=== PATIENT | female | born 1960 | race Caucasian/White ===

== ENCOUNTER 2019-01-05 13:42 | Emergency (ER) | payer MEDICARE, MEDICAID ==
[~2019-01-05] VITALS: Ht 165 cm; Wt 81.0 kg
[2019-01-05] MEDS ORDERED: ORPHENADRINE 60 MG/2 ML (NORFLEX) AMP IM ONE (14:30)
[2019-01-05] MEDS ORDERED: HYDROcodone/APAP 5 MG/325 MG (LORTAB) TAB PO ONE (14:30)
--- NOTE | 2019-01-05 14:45 | Diagnostic Imaging Report ---
PROCEDURE: CT lumbar spine without contrast. TECHNIQUE: Multiple contiguous axial images were obtained through the lumbar spine without the use of intravenous contrast. Sagittal and coronal reformations were then performed. Auto Exposure Controls were utilized during the CT exam to meet ALARA standards for radiation dose reduction. INDICATION: Fall six weeks ago with continued low back pain and left hip and leg pain. COMPARISON: No prior studies are available for comparison. FINDINGS: There is very slight right convexity lumbar scoliotic curvature. There is normal lumbar lordotic curvature. Minimal retrolisthesis of L4 on L5 is noted. The vertebral body heights are well maintained. No acute compression fracture is seen. There is significant degenerative disc disease identified at the L4-L5 level with disc space narrowing, marginal osteophyte formation, and vacuum disc phenomenon. Multilevel facet arthropathy is also noted. No fractures are identified. Paraspinous tissues demonstrate the aorta to be heavily calcified but non-aneurysmal. IMPRESSION: Lumbar spondylosis. No acute bony abnormality is detected. If symptoms persist, MRI of the lumbar spine could be performed for better characterization. Dictated by: Dictated on workstation # [id number]
[2019-01-05] MEDS ORDERED: PRD20T PO (14:59)
[2019-01-05] MEDS ORDERED: IBUP-1780 PO (14:59)
--- NOTE | 2019-01-05 15:00 | ED Back Pain ---
General Chief Complaint: Back Problems Stated Complaint: BACK/LEG PAIN Nursing Triage Note: Pt ambulates to triage with C/O lower back pain, 01/22. Pt states she has chronic back pain, has had back surgery to get disc removed. Pt reports a fall 2 months ago and states her pain has been significantly worse since then, states "wakes me up at night". Pt currently takes tylenol for the pain. Nursing Sepsis Screen: No Definite Risk Source of Information: Patient Exam Limitations: No Limitations History of Present Illness Date Seen by Provider: Jan 05, 2019 Time Seen by Provider: 14:17 Allergies and Home Medications Allergies Coded Allergies: Penicillins (Verified Allergy, Unknown, 01/05/19) tramadol (Verified Allergy, Unknown, 01/05/19) Past Zzsdjkx-Aubnkt-Obaotz Hx Patient Social History Alcohol Use: Rarely Uses Recreational Drug Use: No Type Used: Cigarettes 2nd Hand Smoke Exposure: Yes Recent Foreign Travel: No Contact w/Someone Who Travel: No Recent Infectious Disease Expo: No Recent Hopitalizations: No Physical Abuse: No Sexual Abuse: No Mistreated: No Fear: No Seasonal Allergies Seasonal Allergies: No Past Medical History Surgeries: Yes Appendectomy, Cystectomy, Hysterectomy, Orthopedic Respiratory: Yes COPD Cardiac: Yes (last seizure- 10/2018) Hypertension Neurological: Yes 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 oz. kg; 29.00 BMI Method: Progress/Results/Core Measures Results/Orders My Orders Orders - BLAS DUBOIS Ct Lumbar Spine Wo (01/05/19 14:17) Orphenadrine Injection (Norflex Injectio (01/05/19 14:30) Hydrocodone/Apap 5/325 Tablet (Lortab 5 (01/05/19 14:30) Vital Signs/I&O 01/05/19 13:54 Temp 36.7 Pulse 83 Resp 18 B/P (MAP) 132/82 (99) Pulse Ox 98 O2 Delivery Room Air Blood Pressure Mean: 99 Departure Impression Primary Impression: Chronic back pain Disposition: 01 HOME, SELF-CARE Condition: Stable/Unchanged Departure-Patient Inst. Decision time for Depature: 14:58 Patient Instructions: Low Back Pain (DC), MANAGING YOUR CHRONIC PAIN Add. Discharge Instructions: Take medication as directed. Follow-up with your primary care provider within 1 week for recheck. Return back to the emergency room for worsening symptoms or concerns as needed. All discharge instructions reviewed with patient and/or family. Voiced understanding. Scripts Ibuprofen (Ibuprofen) 800 Mg Tablet 800 MG PO Q8H PRN for PAIN for 7 Days, #21 TAB 0 Refills Prov: BLAS DUBOIS 01/05/19 Prednisone (Prednisone) 20 Mg Tab 40 MG PO DAILY for 5 Days, #10 TAB 0 Refills Prov: BLAS DUBOIS 01/05/19 BLAS DUBOIS Jan 05, 2019 15:00
[2019-01-05 15:04] VITALS: BP 126/75
== END 2019-01-05 15:03 | disposition home or self-care (01) ==
LOC: EDUNIT# 13:42 → ER 13:43
DX: G89.29 Other chronic pain (principal); M54.5 Low back pain; I10 Essential (primary) hypertension; J44.9 Chronic obstructive pulmonary disease, unspecified; G40.909 Epilepsy, unspecified, not intractable, without status epilepticus; Z85.41 Personal history of malignant neoplasm of cervix uteri; Z87.828 Personal history of other (healed) physical injury and trauma; Z98.890 Other specified postprocedural states; Z88.0 Allergy status to penicillin; Z88.5 Allergy status to narcotic agent; Z77.22 Contact with and (suspected) exposure to environmental tobacco smoke (acute) (chronic); Z90.710 Acquired absence of both cervix and uterus; Z90.49 Acquired absence of other specified parts of digestive tract
CPT/HCPCS: 72131

== ENCOUNTER → 2019-03-02 | Outpatient (CLI) | payer MEDICARE, MEDICAID ==
[~2019-03-02] MED LIST: IBUP-1780 PO; PRD20T PO
--- NOTE | 2019-03-02 16:42 | Diagnostic Imaging Report ---
PROCEDURE: MRI lumbar spine. TECHNIQUE: Multiplanar, multisequence MRI of the lumbar spine was performed without contrast. INDICATION: Lifting injury with low back pain. COMPARISON: No prior MR. Study however interpreted in correlation with CT lumbar spine performed on 01/05/2019. FINDINGS: Lumbar body heights are maintained. The alignment is anatomic. The marrow signal intensity is unremarkable. The lumbar spinal canal is narrowed on a multifactorial basis at multiple levels. No paravertebral mass, hemorrhage, or fluid collection. There are some prominent venous channels in the left periaortic retroperitoneum. The lower thoracic cord appeared normal. The conus is normal. No intrathecal abnormality. No acute epidural abnormality. T12-L1: Minimal anterior osteophyte disc material results in no stenosis. L1-L2: There is thickening of the ligamenta flava and facet arthrosis, however no substantial degree of canal, foraminal, or recess stenosis is present. L2-L3: There is buckled thickened ligamenta flava, hypertrophic facet arthrosis with mild disc bulge, and endplate osteophytes resulting in a mild degree of canal stenosis and mild biforaminal narrowing. L3-L4: Buckled thickened ligamenta flava and facet arthrosis with this predominantly responsible for veccdpfe-vh-mskjit canal stenosis with severe left and mild right lateral recess impingement as well as mild left greater than right foraminal narrowing. L4-L5: There is facet arthrosis, thickening of the ligamenta flava, disc bulge, and endplate osteophytes which result in moderate right and mild left foraminal stenosis with mild central canal narrowing. L5-S1: There is no substantial canal stenosis. Osteophyte disc material eccentric to the right results in at least mild right neuroforaminal narrowing. IMPRESSION: Degenerative changes through the discs, endplates, and posterior elements with multilevel stenoses, listed level by level above, greatest at L3-L4. Normal alignment. No acute bony abnormality. Dictated by: Dictated on workstation # [id number]
== END ==
LOC: RAD 15:37
PROVIDERS: ATTEND Internal Medicine
DX: S39.82XA Other specified injuries of lower back, initial encounter (principal); M51.16 Intervertebral disc disorders with radiculopathy, lumbar region; M48.07 Spinal stenosis, lumbosacral region; M25.78 Osteophyte, vertebrae; M47.26 Other spondylosis with radiculopathy, lumbar region; X50.9XXA Other and unspecified overexertion or strenuous movements or postures, initial encounter
CPT/HCPCS: 72148

== ENCOUNTER → 2020-05-10 | Outpatient (CLI) | payer MEDICARE, MEDICAID ==
--- NOTE | 2020-05-10 17:21 | Diagnostic Imaging Report ---
PROCEDURE: MRI lumbar spine. TECHNIQUE: Multiplanar, multisequence MRI of the lumbar spine was performed without contrast. INDICATION: Chronic low back pain. Patient has a history of previous lumbar spine surgery in 2009. Correlation is made to prior MRI lumbar spine study from 03/02/2019. Curvature of lumbar spine is normal. There is minimal retrolisthesis of L4 on L5. Vertebral body heights are maintained. No acute compression fracture or geographic marrow lesion is seen. There is generalized degenerative disc disease with interval disc space narrowing and desiccation, similar to prior exam. The conus is unremarkable at the L1 level. T12-L1: Central canal is patent. Neural foramina are patent. L1-L2: Central canal is patent. There are degenerative facet changes noted. No significant neural foraminal stenosis is seen. L2-L3: Hypertrophic facet changes and ligamentous thickening results in moderate trefoil stenosis of the canal. There is significant bilateral lateral recess stenosis. There is also moderate bilateral neural foraminal stenosis. L3-L4: Marked hypertrophic facet changes and ligamentous thickening with broad-based disc/osteophyte complex results in severe trefoil stenosis of the central canal. There is severe bilateral lateral recess stenosis and also moderate bilateral neural foraminal stenosis. L4-L5: Broad-based disc/osteophyte complex flattens the ventral thecal sac. Central canal is patent but there is severe bilateral lateral recess stenosis. These also fairly significant bilateral neural foraminal stenosis. L5-S1: Central canal is patent but there is significant narrowing of the lateral recesses bilaterally particularly on the right. There is also moderate right neural foraminal stenosis. Paraspinous tissues are unremarkable. IMPRESSION: Multilevel lumbar spondylosis with multilevel central canal, lateral recess or neural foraminal stenosis described level by level above. No acute compression fracture is detected. Dictated by: Dictated on workstation # [id number]
== END ==
LOC: RAD 05-02 16:15
PROVIDERS: ATTEND Nurse Practitioner Family
DX: M47.816 Spondylosis without myelopathy or radiculopathy, lumbar region (principal); M48.061 Spinal stenosis, lumbar region without neurogenic claudication; M25.78 Osteophyte, vertebrae
CPT/HCPCS: 72148

== ENCOUNTER 2020-05-13 08:13 | Inpatient (IN) | payer MEDICARE, MEDICAID ==
[~2020-05-13] VITALS: Ht 170.2 cm; Wt 91.0 kg
[2020-05-13] MEDS ORDERED: LORazepam INJ 2 MG/ML (ATIVAN) VIAL IVP ONE (08:30)
--- NOTE | 2020-05-13 08:59 | Diagnostic Imaging Report ---
EXAMINATION: Chest 1 view HISTORY: SOA COMPARISON: None available. FINDINGS: Heart size and pulmonary vasculature are normal. Mild elevation of the left hemidiaphragm. There are minimal interstitial opacities within the lung bases. Calcifications of the aorta. The osseous structures are intact. IMPRESSION: 1. Mild interstitial opacities in the lung bases which represent atelectasis, edema, or atypical infection in the appropriate clinical setting. Dictated by: Dictated on workstation # [id number]
[2020-05-13 09:04] LABS: CLARITY,URINE SLIGHTLY CLOUDY; COLOR,URINE DARK YELLOW; GLUCOSE, URINE (UA) NEGATIVE (NEGATIVE); PROTEIN,URINE 1+ (NEGATIVE)
[2020-05-13 09:05] LABS: BILIRUBIN,URINE 2+ (NEGATIVE); KETONES,URINE 1+ (NEGATIVE); LEUKOCYTE ESTERASE ,URINE NEGATIVE (NEGATIVE); NITRITE,URINE NEGATIVE (NEGATIVE); RBC,URINE 0-2 /HPF
[2020-05-13 09:06] LABS: BACTERIA,URINE FEW /HPF; HYALINE CASTS, URINE >50 /LPF
[2020-05-13 09:22] LABS: AMPHETAMINE SCREEN, URINE POSITIVE (NEGATIVE); BARBITURATE SCREEN URINE NEGATIVE (NEGATIVE); BENZODIAZEPINES SCREEN URINE NEGATIVE (NEGATIVE); CANNABINOID SCREEN, URINE POSITIVE (NEGATIVE); COCAINE SCREEN URINE NEGATIVE (NEGATIVE); METHADONE STAT NEGATIVE (NEGATIVE); METHAMPHETAMINE SCREEN URINE S POSITIVE (NEGATIVE); OPIATE SCREEN URINE NEGATIVE (NEGATIVE); OXYCODONE STAT NEGATIVE (NEGATIVE); PROPOXYPHENE STAT NEGATIVE (NEGATIVE); TRICYCLIC ANTIDEPRESSANTS SCRE NEGATIVE (NEGATIVE)
[2020-05-13 09:49] LABS: HEMATOCRIT 47 % (35-52); HEMOGLOBIN 16.7 G/DL (11.5-16.0); MEAN CORPUSCULAR HEMOGLOBIN 31 PG (25-34); MEAN CORPUSCULAR HGB CONC 36 G/DL (32-36); MEAN CORPUSCULAR VOLUME 88 FL (80-99); MEAN PLATELET VOLUME 10.1 FL (7.4-10.4); PLATELET COUNT 347 10^3/uL (130-400); WHITE BLOOD COUNT 17.9 10^3/uL (4.3-11.0)
[2020-05-13 09:50] LABS: BASOPHILS % (AUTO) 0 % (0-10); EOSINOPHILS % (AUTO) 0 % (0-10); LYMPHOCYTES # (AUTO) 1.9 X 10^3 (1.0-4.0); LYMPHOCYTES % (AUTO) 11 % (12-44); MONOCYTES % (AUTO) 6 % (0-12); NEUTROPHILS # (AUTO) 14.9 X 10^3 (1.8-7.8); NEUTROPHILS % (AUTO) 83 % (42-75)
[2020-05-13 10:17] LABS: CHLORIDE 106 MMOL/L (98-107); POTASSIUM 3.1 MMOL/L (3.6-5.0); SODIUM 144 MMOL/L (135-145)
[2020-05-13 10:18] LABS: ALANINE AMINOTRANSFERASE 59 U/L (0-55); ALBUMIN 3.9 GM/DL (3.2-4.5); ALKALINE PHOSPHATASE 79 U/L (40-136); BILIRUBIN,TOTAL 0.4 MG/DL (0.1-1.0); BUN/CREATININE RATIO 29; CALCIUM 9.7 MG/DL (8.5-10.1); CARBON DIOXIDE 19 MMOL/L (21-32); CREATININE SERUM 1.49 MG/DL (0.60-1.30); GFR ESTIMATED 36; GLUCOSE 114 MG/DL (70-105); TOTAL PROTEIN 8.9 GM/DL (6.4-8.2)
[2020-05-13 10:19] LABS: BAND NEUTROPHILS 10 %; LYMPHOCYTES % (MANUAL) 9 %; MONOCYTES % (MANUAL) 5 %; NEUTROPHILS % (MANUAL) 76 %
[2020-05-13 10:20] LABS: BASOPHILS % (MANUAL) 0 %; EOSINOPHILS % (MANUAL) 0 %; RBC MORPH NORMAL
[2020-05-13] MEDS ORDERED: FUROSEMIDE 40 MG/4 ML INJ (LASIX) IVP ONE (10:45)
[2020-05-13] MEDS ORDERED: HALOPERIDOL 5 MG/ML (HALDOL) VIAL IV ONE (12:00)
--- NOTE | 2020-05-13 12:04 | ED General ---
General Chief Complaint: Altered Mental Status Stated Complaint: CHEST PAIN; BLURRY VISION Nursing Triage Note: Patient brought to the ED by EMS, EMS states they were called to patient's residence by patient's daughter for patient reported blurred vision and chest pain, patient oriented to person only on arrival to the ED, resistant to staff. Nursing Sepsis Screen: No Definite Risk History of Present Illness Date Seen by Provider: May 13, 2020 Time Seen by Provider: 08:30 Initial Comments Patient is a 59-year-old female with history of hypertension, chronic respiratory failure and polysubstance abuse who is supplemental O2 dependent who presents altered mental status, chest pain, shortness of breath. Patient was found not wearing her oxygen this morning by EMS. O2 saturations were in the mid to upper 80s. Patient was placed on oxygen during transportation with O2 saturation in the low 90s on ED arrival. Patient is alert and oriented to person but confused to person place and events. She has rambling speech and is noted to be tachycardic. Blood pressure stable. Patient history is limited due to mental status changes. Timing/Duration: Other (Unknown) Severity: Moderate Associated Systoms: Shortness of Air Allergies and Home Medications Allergies Coded Allergies: Penicillins (Verified Allergy, Unknown, 01/05/19) tramadol (Verified Allergy, Unknown, 01/05/19) Home Medications Ibuprofen 800 Mg Tablet, 800 MG PO Q8H PRN for PAIN Prescribed by: BLAS DUBOIS on 01/05/19 145 Prednisone 20 Mg Tab, 40 MG PO DAILY Prescribed by: BLAS DUBOIS on 01/05/19 145 Patient Home Medication List Home Medication List Reviewed: Yes Review of Systems Review of Systems Constitutional: see HPI EENTM: see HPI Respiratory: see HPI Cardiovascular: see HPI Gastrointestinal: see HPI Genitourinary: see HPI Musculoskeletal: see HPI Skin: see HPI Psychiatric/Neurological: See HPI Hematologic/Lymphatic: See HPI All Other Systems Reviewed Negative Unless Noted: Yes Past Cuhotfw-Mfkhba-Svubhe Hx Past Med/Social Hx: Reviewed Nursing Past Med/Soc Hx Patient Social History Alcohol Use: Denies Use Drug of Choice: positive for methamphetamines and marijuana Smoking Status: Current Everyday Smoker Type Used: Cigarettes 2nd Hand Smoke Exposure: Yes Recent Infectious Disease Expo: No Recent Hopitalizations: No Seasonal Allergies Seasonal Allergies: No Past Medical History Surgeries: Yes Appendectomy, Cystectomy, Hysterectomy, Orthopedic Respiratory: Yes COPD Cardiac: Yes (last seizure- 10/2018) Hypertension 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 oz. 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 Norm as Tested, Abnormal equipment technician II-XII Focused Exam Lactate Level 05/13/20 09:35: Lactic Acid Level 1.58 Lactic Acid Level Laboratory Tests Test 05/13/20 09:35 Lactic Acid Level 1.58 MMOL/L (0.50-2.00) Progress/Results/Core Measures Suspected Sepsis Recent Fever Within 48 Hours: No Infection Criteria Present: None New/Unexplained Altered Menta: Yes Sepsis Screen: No Definite Risk SIRS Temperature: Pulse: 137 Respiratory Rate: 23 Laboratory Tests 05/13/20 09:35: White Blood Count 17.9H Blood Pressure 141 /92 Mean: 108 05/13/20 09:35: Lactic Acid Level 1.58 Laboratory Tests 05/13/20 09:35: Creatinine 1.49H, Platelet Count 347, Total Bilirubin 0.4 Results/Orders Lab Results Laboratory Tests Test 05/13/20 08:40 05/13/20 09:35 Range/Units Urine Color DARK YELLOW Urine Clarity SLIGHTLY CLOUDY Urine pH 6.0 5-9 Urine Specific [place] >=1.030 1.016-1.022 Urine Protein 1+ H NEGATIVE Urine Glucose (UA) NEGATIVE NEGATIVE Urine Ketones 1+ H NEGATIVE Urine Nitrite NEGATIVE NEGATIVE Urine Bilirubin 2+ H NEGATIVE Urine Urobilinogen 0.2 < = 1.0 MG/DL Urine Leukocyte Esterase NEGATIVE NEGATIVE Urine RBC (Auto) TRACE H NEGATIVE Urine RBC 0-2 /HPF Urine WBC 10-25 H /HPF Urine Squamous Epithelial Cells 10-25 H /HPF Urine Crystals NONE /LPF Urine Bacteria FEW H /HPF Urine Casts PRESENT /LPF Urine Hyaline Casts >50 H /LPF Urine Mucus MODERATE H /LPF Urine Culture Indicated YES Urine Opiates Screen NEGATIVE NEGATIVE Urine Oxycodone Screen NEGATIVE NEGATIVE Urine Methadone Screen NEGATIVE NEGATIVE Urine Propoxyphene Screen NEGATIVE NEGATIVE Urine Barbiturates Screen NEGATIVE NEGATIVE Ur Tricyclic Antidepressants Screen NEGATIVE NEGATIVE Urine Phencyclidine Screen NEGATIVE NEGATIVE Urine Amphetamines Screen POSITIVE H NEGATIVE Urine Methamphetamines Screen POSITIVE H NEGATIVE Urine Benzodiazepines Screen NEGATIVE NEGATIVE Urine Cocaine Screen NEGATIVE NEGATIVE Urine Cannabinoids Screen POSITIVE H NEGATIVE White Blood Count 17.9 H 4.3-11.0 10^3/uL Red Blood Count 5.34 4.35-5.85 10^6/uL Hemoglobin 16.7 H 11.5-16.0 G/DL Hematocrit 47 35-52 % Mean Corpuscular Volume 88 80-99 FL Mean Corpuscular Hemoglobin 31 25-34 PG Mean Corpuscular Hemoglobin Concent 36 32-36 G/DL Red Cell Distribution Width 12.7 10.0-14.5 % Platelet Count 347 130-400 10^3/uL Mean Platelet Volume 10.1 7.4-10.4 FL Immature Granulocyte % (Auto) 1 % Neutrophils (%) (Auto) 83 H 42-75 % Lymphocytes (%) (Auto) 11 L 12-44 % Monocytes (%) (Auto) 6 0-12 % Eosinophils (%) (Auto) 0 0-10 % Basophils (%) (Auto) 0 0-10 % Neutrophils # (Auto) 14.9 H 1.8-7.8 X 10^3 Lymphocytes # (Auto) 1.9 1.0-4.0 X 10^3 Monocytes # (Auto) 1.0 0.0-1.0 X 10^3 Eosinophils # (Auto) 0.0 0.0-0.3 10^3/uL Basophils # (Auto) 0.0 0.0-0.1 10^3/uL Immature Granulocyte # (Auto) 0.1 0.0-0.1 10^3/uL Neutrophils % (Manual) 76 % Lymphocytes % (Manual) 9 % Monocytes % (Manual) 5 % Eosinophils % (Manual) 0 % Basophils % (Manual) 0 % Band Neutrophils 10 % Blood Morphology Comment NORMAL Sodium Level 144 135-145 MMOL/L Potassium Level 3.1 L 3.6-5.0 MMOL/L Chloride Level 106 98-107 MMOL/L Carbon Dioxide Level 19 L 21-32 MMOL/L Anion Gap 19 H 5-14 MMOL/L Blood Urea Nitrogen 43 H 7-18 MG/DL Creatinine 1.49 H 0.60-1.30 MG/DL Estimat Glomerular Filtration Rate 36 BUN/Creatinine Ratio 29 Glucose Level 114 H 70-105 MG/DL Lactic Acid Level 1.58 0.50-2.00 MMOL/L Calcium Level 9.7 8.5-10.1 MG/DL Corrected Calcium 9.8 8.5-10.1 MG/DL Total Bilirubin 0.4 0.1-1.0 MG/DL Aspartate Amino Transf (AST/SGOT) 59 H 5-34 U/L Alanine Aminotransferase (ALT/SGPT) 59 H 0-55 U/L Alkaline Phosphatase 79 40-136 U/L Troponin I < 0.30 <0.30 NG/ML Pro-B-Type Natriuretic Peptide 1773.0 H <75.0 PG/ML Total Protein 8.9 H 6.4-8.2 GM/DL Albumin 3.9 3.2-4.5 GM/DL My Orders Orders - GLENNA TRUJILLO DO Cbc With Automated Diff (05/13/20 08:27) Comprehensive Metabolic Panel (05/13/20 08:27) Ekg Tracing (05/13/20 08:27) Troponin I Fs (05/13/20 08:27) Probnp Fs (05/13/20 08:27) Chest 1 View Ap/Pa Only (05/13/20 08:27) Urinalysis (05/13/20 08:28) Lactic Acid Analyzer (05/13/20 08:28) Lorazepam Injection (Ativan Injection) (05/13/20 08:30) Drug Screen Stat (Urine) (05/13/20 09:05) Urine Culture (05/13/20 08:40) Manual Differential (05/13/20 09:35) Furosemide Injection (Lasix Injection) (05/13/20 10:45) Haloperidol Injection (Haldol Injectio (05/13/20 12:00) Medications Given in ED Current Medications Medications Dose Ordered Sig/Jodie Route Start Time Stop Time Status Last Admin Dose Admin Furosemide 20 mg ONCE ONCE IVP 05/13/20 10:45 05/13/20 10:46 DC 05/13/20 10:59 20 MG Lorazepam 0.5 mg ONCE ONCE IVP 05/13/20 08:30 05/13/20 08:31 DC 05/13/20 09:54 0.5 MG Vital Signs/I&O 05/13/20 08:14 Temp 36.3 Pulse 137 Resp 23 B/P (MAP) 141/92 (108) Pulse Ox 95 O2 Delivery Room Air Capillary Refill : Less Than 3 Seconds Blood Pressure Mean: 108 Departure Communication (Admissions) CXR: nonspecific findings. Impression Primary Impression: Acute congestive heart failure Additional Impression: Methamphetamine abuse Disposition: 01 HOME, SELF-CARE Condition: Stable Admissions Decision to Admit Reason: Admit from ER (General) Decision to Admit/Date: May 13, 2020 Time/Decision to Admit Time: 12:09 (Dr. Escobar) Departure-Patient Inst. Referrals: NO,LOCAL PHYSICIAN (PCP/Family) Primary Care Physician GLENNA TRUJILLO DO May 13, 2020 12:04
[2020-05-13] MEDS ORDERED: HALOPERIDOL 5 MG/ML (HALDOL) VIAL IM ONE (12:15)
[2020-05-13 14:12] VITALS: BP 116/77
--- NOTE | 2020-05-13 14:37 | History & Physical-Hospitalist ---
INOCENTE OWENS,MED STUDENT 05/13/20 1437: History of Present Illness HPI/Chief Complaint Patient is a 59yo female with a PMH of COPD, hypertension, and polysubstance abuse presenting from [facility] ED via EMS due to altered mental status, chest pain and shortness of breath. She has chronic respiratory failure requiring supplemental oxygen and was found this morning by EMS not wearing her home oxygen. Per EMS, O2 sats were in the upper 80's, and during transport to ED she was placed on oxygen and sats were in the low 90's on arrival. She is oriented to place, but not person or date. She is somnolent and has rambling, incomprehensible speech. Due to her clinical condition patient history is limited. Source: patient, RN/MD Exam Limitations: clinical condition Date Seen 05/13/20 Time Seen by a Provider: 14:00 Attending Physician Neo Escobar MD PCP No,Local Physician Referring Physician Date of Admission May 13, 2020 at 13:38 Home Medications & Allergies Home Medications Reviewed patient Home Medication Reconciliation performed by pharmacy medication reconciliations field operations technician and/or nursing. Patients Allergies have been reviewed. Allergies Allergies Coded Allergies Penicillins (Verified Allergy, Unknown, 01/05/19) tramadol (Verified Allergy, Unknown, 01/05/19) Past Zymdxik-Zvlkgw-Lufnlj Hx Past Med/Social Hx: Reviewed Nursing Past Med/Soc Hx Patient Social History Alcohol Use: Denies Use Recreational Drug Use: Yes Drug of Choice: positive for methamphetamines and marijuana Smoking Status: Current Everyday Smoker Type Used: Cigarettes 2nd Hand Smoke Exposure: Yes Recent Foreign Travel: No Contact w/other who traveled: No Recent Hopitalizations: No Recent Infectious Disease Expo: No Seasonal Allergies Seasonal Allergies: No Past Medical History Surgeries: Appendectomy, Cystectomy, Hysterectomy, Orthopedic Respiratory: COPD Cardiac: Hypertension Neurological: Seizure Disorder Hysterectomy Musculoskeletal: Chronic Back Pain Cancer: Cervical Did You Recieve Any Treatments: Yes Review of Systems ROS-Unable to Obtain: Unable to obtain due to altered mental status Physical Exam Physical Exam Vital Signs Vital Signs - First Documented 05/13/20 05/13/20 05/13/20 08:14 13:07 22:41 Temp 36.3 Pulse 137 Resp 23 B/P (MAP) 141/92 (108) Pulse Ox 95 O2 Delivery Room Air O2 Flow Rate 3.00 FiO2 21 Capillary Refill : Less Than 3 Seconds Height, Weight, BMI Height: '" Weight: lbs. oz. kg; 29.00 BMI Method: General Appearance: No Apparent Distress, WD/WN HEENT: PERRL/EOMI, Pharynx Normal; No Moist Mucous Membranes Neck: Non Tender, Supple Respiratory: No Accessory Muscle Use, No Respiratory Distress; No Wheezing Cardiovascular: No Edema, Normal Peripheral Pulses, Tachycardia Gastrointestinal: Normal Bowel Sounds, Non Tender, Soft Extremity: Non Tender, No Calf Tenderness, No Pedal Edema Neurologic/Psychiatric: Disoriented, Other (Somnolent) Skin: Normal Color, Warm/Dry Results Results/Procedures Labs Laboratory Tests 05/13/20 09:35 05/14/20 06:00 Patient resulted labs reviewed. Assessment/Plan Assessment and Plan Acute congestive heart failure Repeat troponin Repeat CXR Cardiology consulted Altered mental status Hypokalemia Methamphetamine and marijuana abuse COPD On 2L NEO OLSEN MD 05/13/20 1930: Past Smdrxwa-Pysztk-Nebyqc Hx Past Med/Social Hx: Reviewed Nursing Past Med/Soc Hx Review of Systems Constitutional: see HPI Assessment/Plan Admission Diagnosis Encephalopathy Admission Status: Inpatient Order (span 2 midnights) Reason for Inpatient Admission: see below Assessment and Plan Pt admitted due to encephalopathy of likely multiple etiologies. She is unable to give me much history and mostly mumbles. She did agree to me calling her daughter for further information and knew she was confused but then mumbled "I'm going to drop my baby." which is more consistent with her presentation in the ER. I did call her daughter who states that she is normall alert and oriented x4 but that she hadn'tbeen answering her phone the past couple of days so they went to check on her last night. They found her down incontinent of urine with vomit in her hair. They attempted to take her to the Er last night but the patient refused saying she would get better but would only sit in her check rocking. I did discuss the patient's urine drug screen with her daughter and my concern this may be contributing but daughter does not believe that to be the case and is worried about medications side effect or stroke. Elected to order a noncontrast CT head to evaluation for ICH given fall or CVA given >24 hour duration of symptoms. UA equivocal for UTI but given leukocytosis with bandemia will start on antibiotics. Did complain to her daughter of chest pain so cardiology consulted as well and will trend troponins. pulmonology consulted as significant rhonchi on exam and concern for aspiration pneumonia given history of vomiting. Monitoring closely with sitter in place. Diagnosis/Problems Diagnosis/Problems (1) Encephalopathy Status: Acute (2) UTI (urinary tract infection) Qualifiers: Urinary tract infection type: acute cystitis Hematuria presence: without hematuria Qualified Codes: N30.00 - Acute cystitis without hematuria (3) COPD (chronic obstructive pulmonary disease) Status: Chronic Qualifiers: COPD type: unspecified COPD Qualified Codes: J44.9 - Chronic obstructive pulmonary disease, unspecified (4) Bipolar disorder Status: Chronic Qualifiers: Active/Remission status: remission status unspecified Qualified Codes: F3 1.9 - Bipolar disorder, unspecified (5) KELSIE (acute kidney injury) Status: Acute (6) Leukocytosis Status: Acute Qualifiers: Leukocytosis type: bandemia Qualified Codes: D72.825 - Bandemia (7) Marijuana abuse Status: Chronic (8) Chest pain Status: Acute Qualifiers: Chest pain type: unspecified Qualified Codes: R07.9 - Chest pain, unspecified (9) Methamphetamine abuse Status: Acute Supervisory-Addendum Brief Verification & Attestation Participated in pt care: history, MDM, physical Personally performed: exam, history, MDM, supervision of care Care discussed with: Medical Student Procedures: n/a Results interpretation: Verified all documentation Verification and Attestation of Medical Student E/M Service A medical student performed and documented this service in my presence. I reviewed and verified all information documented by the medical student and made modifications to such information, when appropriate. I personally performed the physical exam and medical decision making. Neo Escobar, May 13, 2020,19:21 INOCENTE OWENS,MED STUDENT May 13, 2020 14:37 NEO ESCOBAR MD May 13, 2020 19:30
[2020-05-13] MEDS ORDERED: HALOPERIDOL 5 MG/ML (HALDOL) VIAL IM PRN (15:15)
[2020-05-13] MEDS ORDERED: cefTRIAXone FOR IV USE 1,000 MG in WATER (STERILE) FOR INJECTION 10 ML IV SCH (15:15)
[2020-05-13] MEDS ORDERED: ESTR2TAB PO (15:26)
[2020-05-13] MEDS ORDERED: MELO15TA39 PO (15:26)
[2020-05-13] MEDS ORDERED: GABA800T10 PO (15:26)
[2020-05-13] MEDS ORDERED: OMEP20CA18 PO (15:26)
[2020-05-13] MEDS ORDERED: LAMO100T5 PO (15:26)
[2020-05-13] MEDS ORDERED: BACL10TA PO (15:26)
[2020-05-13] MEDS ORDERED: LURA40TA3 PO (15:26)
[2020-05-13] MEDS ORDERED: UMEC62.5 INH (15:26)
[2020-05-13] MEDS ORDERED: IBUP-1780 PO (15:26)
[2020-05-13] MEDS ORDERED: HYDR25TA4 PO (15:26)
[2020-05-13] MEDS ORDERED: RT-ALBUINH INH (15:26)
[2020-05-13] MEDS ORDERED: TRAZ-227 PO (15:26)
--- NOTE | 2020-05-13 15:27 | NUR ---
PT IS NOT ABLE TO GIVE ME ANY INFORMATION FROM THE PT REGARDING HER MEDICATIONS- THEREFORE I USED THE EXT MED HISTORY AND A MED LIST FROM [facility] (A COPY IS ATTACHED TO HER CHART) TO COMPLETE THE MED REC.
[2020-05-13] MEDS ORDERED: CATHETER FLUSH 10 ML SYR IV PRN (15:30)
[2020-05-13] MEDS ORDERED: NON-FORMULARY MEDICATION 1 EA EA (Lurasidone HCl (Latuda) 40 MG) PO SCH (15:45)
[2020-05-13] MEDS ORDERED: RT-ALBUTEROL SULF 2.5 MG/3 ML PRE-MIX VIAL INH PRN ×2 (15:45→23:00)
--- NOTE | 2020-05-13 15:56 | Pulmonary Consultation ---
History of Present Illness History of Present Illness Date Seen by Provider: May 13, 2020 Time Seen by Provider: 15:56 Date of Admission Allergies and Home Medications Allergies Coded Allergies: Penicillins (Verified Allergy, Unknown, 01/05/19) tramadol (Verified Allergy, Unknown, 01/05/19) Home Medications Albuterol Sulfate 6.7 Gm Hfa.aer.ad, 2 PUFF INH Q6H PRN for SHORTNESS OF BREATH, (Reported) Baclofen 10 Mg Tablet, 10 MG PO BID, (Reported) Estradiol 2 Mg Tablet, 2 MG PO DAILY, (Reported) Gabapentin 800 Mg Tablet, 800 MG PO TID, (Reported) Hydrochlorothiazide 25 Mg Tablet, 25 MG PO DAILY, (Reported) Ibuprofen 800 Mg Tablet, 800 MG PO Q8H PRN for PAIN-MILD, (Reported) Lamotrigine 100 Mg Tablet, 100 MG PO DAILY, (Reported) Lurasidone HCl 40 Mg Tablet, 40 MG PO DAILY W/ MEAL, (Reported) Meloxicam 15 Mg Tablet, 15 MG PO DAILY, (Reported) Omeprazole 20 Mg Capsule.dr, 20 MG PO DAILY, (Reported) Trazodone HCl 100 Mg Tablet, 100 MG PO HS, (Reported) Umeclidinium [place] 62.5 Mcg Blst.w.dev, 1 PUFF INH DAILY, (Reported) Past Flgultk-Qpgvrv-Hhikha Hx Past Med/Social Hx: Reviewed Nursing Past Med/Soc Hx Patient Social History Alcohol Use: Denies Use Drug of Choice: positive for methamphetamines and marijuana Smoking Status: Current Everyday Smoker Type Used: Cigarettes 2nd Hand Smoke Exposure: Yes Recent Infectious Disease Expo: No Recent Hopitalizations: No Have you traveled recently?: Unable to obtain Substance type: Amphetamines, Methamphetamine, Marijuana Alcohol Use?: Unable to obtain Seasonal Allergies Seasonal Allergies: No Past Medical History Surgeries: Yes Appendectomy, Cystectomy, Hysterectomy, Orthopedic Respiratory: Yes COPD Cardiac: Yes (last seizure- 10/2018) Hypertension Neurological: Yes 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 oz. kg; 29.00 BMI Method: Exam Exam Vital Signs Date Time Temp Pulse Resp B/P (MAP) Pulse Ox O2 Delivery O2 Flow Rate FiO2 05/13/20 14:12 36.6 102 16 116/77 (90) 91 Nasal Cannula 2.00 05/13/20 13:07 109 15 109/82 92 Nasal Cannula 3.00 05/13/20 08:14 36.3 137 23 141/92 (108) 95 Room Air Height & Weight Height: '" Weight: lbs. oz. kg; 29.00 BMI Method: General Appearance: No Apparent Distress, WD/WN HEENT: PERRL/EOMI, Pharynx Normal; No Moist Mucous Membranes Neck: Non Tender, Supple Respiratory: No Accessory Muscle Use, No Respiratory Distress; No Wheezing Cardiovascular: No Edema, Normal Peripheral Pulses, Tachycardia Capillary Refill: Less Than 3 Seconds Extremity: Non Tender, No Calf Tenderness, No Pedal Edema Neurologic/Psychiatric: Disoriented, Other (Somnolent) Skin: Normal Color, Warm/Dry Results Lab Laboratory Tests 05/13/20 09:35 Assessment/Plan Assessment/Plan Pneumonia with probable aspiration and hypoxia -Oxygen -Rocephin add Clindamycin -Add telemetry Metabolic encephalopathy -Check ABG Metabolic acidosis probably secondary to renal failure -IVF -Lactic acid is normal KELSIE -IVF -Monitor Methamphetamine and marijuanna use UTI -Rocephin Bipolar hx KELSIE -IVF -Monitor NSTEMI -Cardiology following USAMA RIZO DO May 13, 2020 15:56
[2020-05-13] MEDS ORDERED: NS IV 500 ML 500 ML ONE (16:05)
[2020-05-13] MEDS: POTASSIUM CL 10MEQ/50ML IVPB 50 ML IV SCH ×4 (16:15→22:25)
[2020-05-13] MEDS: CEFEPIME INJECTION 1,000 MG in WATER (STERILE) FOR INJECTION 10 ML IV SCH ×2 (16:15→23:45)
--- NOTE | 2020-05-13 16:30 | NUR ---
Nancy admitted to room 414-1, with an admitting diagnosis of CHF exacerbation, on 05/13/20 from AM via EMS, accompanied by ems staff.NANCY TRUJILLO introduced to surroundings, call light, bed controls, phone, TV, temperature control, lights, meal times, smoking policy, visitor policy, side rail policy, bathrooms and showers. Patient Rights given to patient in the handbook. NANCY TRUJILLO unable to comprehend admission process as actively hallucinating and reporteding on meth. Responses to her name but does not make much sense in answering questions. Admission completed with very limited information. Tele sitter placed in room due to patients confusion and inability to follow direction.
[2020-05-13 16:36] LABS: ABG OXYGEN SATURATION 90 % (94-100); ABG PCO2 29 MMHG (35-45); ABG PH 7.43 (7.37-7.43); ABG PO2 61 MMHG (79-93); ABG TCO2 19.6 MMOL/L (21.0-31.0)
[2020-05-13 16:37] LABS: ALLENS TEST YES-POS; INSPIRED O2 4L; PATIENT TEMP 36.4; VENTILATOR NO
[2020-05-13 16:59] VITALS: BP 130/90
[2020-05-13 17:04] VITALS: BP 130/90
--- NOTE | 2020-05-13 17:34 | Diagnostic Imaging Report ---
EXAMINATION: CT head without contrast. TECHNIQUE: Multiple contiguous axial images were obtained through the brain without the use of intravenous contrast. All CT scans use one or more of the following dose optimizing techniques: automated exposure control, MA and/or KvP adjustment based on a patient size and exam type, or iterative reconstruction. HISTORY: Confusion. Difficulty speaking. COMPARISON: None available. FINDINGS: No large acute territorial ischemia, mass, or hemorrhage. No midline shift or mass effect. The ventricles, cortical sulci, and basilar cisterns are patent and unremarkable. The orbits are normal. Fluid level is seen in the right maxillary sinus. Mastoid air cells are clear. No soft tissue abnormality is seen. No osseus lesions or fractures are seen. IMPRESSION: 1. No large acute territorial ischemia, mass, or hemorrhage. 2. Acute sinusitis involving the right maxillary sinus. Dictated by: Dictated on workstation # [id number]
--- NOTE | 2020-05-13 18:55 | NUR ---
Spoke with Dr Pedro to review patient's ABG numbers and he ordered CHARLIE protocol. Due to patient's copious amount of sputum she is coughing up the HOB should remain at 35 degree or higher.
[2020-05-13] MEDS: CLINDAMYCIN 600 MG/50 ML IVPB 50 ML IV SCH (19:02)
[2020-05-13] MEDS ORDERED: ONDANSETRON 4 MG/2 ML (SDV) Z0FRAN IV PRN (20:15)
[2020-05-13] MEDS ORDERED: ACETAMINOPHEN 325 MG TABLET PO PRN (20:15)
[2020-05-13] MEDS ORDERED: MELATONIN 3 MG TABLET PO PRN (20:15)
[2020-05-13] MEDS ORDERED: MILK OF MAGNESIA 400 MG/5 ML 30 ML UDC PO PRN (20:15)
[2020-05-13] MEDS ORDERED: BENZONATATE 100 MG (TESSALON) CAPSULE PO PRN (20:15)
[2020-05-13] MEDS ORDERED: ANTACID SUSP 30 ML UDC (MYLANTA) PO PRN (20:15)
[2020-05-13 20:31] VITALS: BP 118/83
[2020-05-13] MEDS: LACTULOSE SYRUP 10GM/15ML (ENULOSE) 30ML UDC PO SCH (21:12)
[2020-05-13] MEDS: RIFAXIMIN 550 MG TABLET (XIFAXAN) PO SCH (21:12)
[2020-05-13] MEDS: traZODone 100 MG (DESYREL) TAB PO SCH (21:12)
[2020-05-13] MEDS: CATHETER FLUSH 10 ML SYR IV SCH (22:25)
--- NOTE | 2020-05-13 22:35 | NUR ---
AND DR. LUO NOTIFIED OF PT'S TROPONIN TRENDING UP. NO NEW ORDERS. WILL CONTINUE TO MONITOR
[2020-05-13 22:41] VITALS: BP 141/92
--- NOTE | 2020-05-13 22:55 | NUR ---
albuterol tx q6 and q2 prn. initiate 02 to keep sats greater than 90%. IS TID. RT to reassess or reevaluate in 72 hours or as needed Addendum: 05/13/20 at 2256 by SAMUEL RIZO RT Amended: Links added.
[2020-05-13 23:34] VITALS: BP 98/65
[2020-05-14 00:43] VITALS: BP 106/70
[2020-05-14] MEDS: RT-ALBUTEROL/IPRATROPIUM 3 ML (DUONEB) VIAL INH SCH ×4 (01:33→18:52)
[2020-05-14] MEDS: CLINDAMYCIN 600 MG/50 ML IVPB 50 ML IV SCH ×3 (02:22→17:46)
[2020-05-14 03:46] VITALS: BP 138/85
[2020-05-14 06:12] LABS: BASOPHILS # (AUTO) 0.1 10^3/uL (0.0-0.1); BASOPHILS % (AUTO) 0 % (0-10); EOSINOPHILS % (AUTO) 0 % (0-10); HEMATOCRIT 46 % (35-52); HEMOGLOBIN 15.9 g/dL (11.5-16.0); LYMPHOCYTES # (AUTO) 2.7 10^3/uL (1.0-4.0); LYMPHOCYTES % (AUTO) 11 % (12-44); MEAN CORPUSCULAR HEMOGLOBIN 31 pg (25-34); MEAN CORPUSCULAR HGB CONC 35 g/dL (32-36); MEAN CORPUSCULAR VOLUME 89 fL (80-99); MEAN PLATELET VOLUME 10.3 fL (9.0-12.2); MONOCYTES # (AUTO) 1.7 10^3/uL (0.0-1.0); MONOCYTES % (AUTO) 7 % (0-12); NEUTROPHILS # (AUTO) 18.9 10^3/uL (1.8-7.8); NEUTROPHILS % (AUTO) 81 % (42-75); PLATELET COUNT 330 10^3/uL (130-400); WHITE BLOOD COUNT 23.5 10^3/uL (4.3-11.0)
[2020-05-14 06:26] LABS: ALBUMIN 3.6 GM/DL (3.2-4.5); POTASSIUM 3.7 MMOL/L (3.6-5.0)
[2020-05-14 06:27] LABS: CALCIUM 9.6 MG/DL (8.5-10.1)
[2020-05-14 06:30] LABS: BILIRUBIN,TOTAL 0.6 MG/DL (0.1-1.0)
[2020-05-14 06:32] LABS: CREATININE SERUM 1.52 MG/DL (0.60-1.30)
[2020-05-14] MEDS: CATHETER FLUSH 10 ML SYR IV SCH ×3 (06:36→20:41)
[2020-05-14] MEDS: FUROSEMIDE 40 MG/4 ML INJ (LASIX) IV SCH (06:36)
--- NOTE | 2020-05-14 07:14 | Pulmonary Progress Note ---
Subjective Time Seen by a Provider: 07:13 Sepsis Event Evaluation Height, Weight, BMI Height: '" Weight: lbs. oz. kg; 29.00 BMI Method: Focused Exam Lactate Level 05/13/20 09:35: Lactic Acid Level 1.58 05/13/20 15:52: Lactic Acid Level 1.80 Exam Exam Vital Signs Date Time Temp Pulse Resp B/P (MAP) Pulse Ox O2 Delivery O2 Flow Rate FiO2 05/14/20 03:46 108 20 138/85 (102) 94 Nasal Cannula 2.00 05/14/20 01:33 96 Nasal Cannula 4.00 05/14/20 01:00 114 05/14/20 00:43 115 106/70 (82) 05/14/20 00:42 36.6 05/13/20 23:46 38.5 05/13/20 23:34 38.5 120 18 98/65 (76) 94 High Flow N/C 4.00 05/13/20 22:41 36.3 137 95 21 05/13/20 21:10 Nasal Cannula 4.00 05/13/20 20:31 36.3 104 18 118/83 (95) 92 Nasal Cannula 4.00 05/13/20 19:00 113 05/13/20 17:04 36.4 108 20 130/90 (103) 88 Nasal Cannula 2.00 05/13/20 16:59 36.4 108 20 130/90 (103) 88 Nasal Cannula 2.00 05/13/20 16:36 113 05/13/20 16:00 92 Nasal Cannula 3.00 05/13/20 14:12 36.6 102 16 116/77 (90) 91 Nasal Cannula 2.00 05/13/20 13:07 109 15 109/82 92 Nasal Cannula 3.00 05/13/20 08:14 36.3 137 23 141/92 (108) 95 Room Air I & O 05/14/20 07:00 Intake Total 560 ml Balance 560 ml Height & Weight Height: '" Weight: lbs. oz. kg; 29.00 BMI Method: General Appearance: No Apparent Distress, WD/WN HEENT: PERRL/EOMI, Pharynx Normal; No Moist Mucous Membranes Neck: Non Tender, Supple Respiratory: No Accessory Muscle Use, No Respiratory Distress; No Wheezing Cardiovascular: No Edema, Normal Peripheral Pulses, Tachycardia Capillary Refill: Less Than 3 Seconds Extremity: Non Tender, No Calf Tenderness, No Pedal Edema Neurologic/Psychiatric: Disoriented, Other (Somnolent) Skin: Normal Color, Warm/Dry Results Lab Laboratory Tests 05/13/20 09:35 05/14/20 06:00 Assessment/Plan Assessment/Plan Pneumonia with probable aspiration and hypoxia -Oxygen -cefepime add Clindamycin Metabolic encephalopathy -Montior Metabolic acidosis probably secondary to renal failure -IVF -Lactic acid is normal KELSIE -IVF -Monitor Methamphetamine and marijuanna use UTI -Rocephin Bipolar hx KELSIE -IVF -Monitor NSTEMI -Cardiology following USAMA RIZO DO May 14, 2020 07:14
--- NOTE | 2020-05-14 07:39 | Diagnostic Imaging Report ---
EXAMINATION: Chest 1 view HISTORY: Heart failure COMPARISON: 05/13/2020 FINDINGS: Mild left base atelectasis. No pleural effusion or pneumothorax. No edema. Heart size is normal. IMPRESSION: 1. Mild left base atelectasis. Dictated by: Dictated on workstation # [id number]
[2020-05-14 08:00] VITALS: BP 114/85
[2020-05-14] MEDS: CEFEPIME INJECTION 1,000 MG in WATER (STERILE) FOR INJECTION 10 ML IV SCH ×3 (08:16→23:42)
[2020-05-14] MEDS: LACTULOSE SYRUP 10GM/15ML (ENULOSE) 30ML UDC PO SCH ×2 (08:16→20:40)
[2020-05-14] MEDS: PANTOPRAZOLE 20 MG TABLET (PROTONIX) PO SCH (08:16)
[2020-05-14] MEDS: ASPIRIN 81 MG CHEW (CHILDREN'S ASA) PO SCH (08:16)
[2020-05-14] MEDS: RIFAXIMIN 550 MG TABLET (XIFAXAN) PO SCH ×2 (08:18→20:40)
[2020-05-14] MEDS ORDERED: OMEPRAZOLE 20 MG (PriLOSEC) CAP NON-FORMULARY PO SCH (09:00)
--- NOTE | 2020-05-14 09:35 | Consultation-Cardiology ---
HPI-Cardiology Cardiology Consultation Date of Consultation 05/14/20 Date of Admission Time Seen by Provider: 09:31 Indication: elevated troponin level HPI 59-year-old lady with history of COPD, hypertension and illicit drug use presented to the emergency room in [place] for change in mental status. She was having chest pain and shortness of breath. She has been maintained on oxygen as an outpatient. Patient had mild elevation in troponin. On my evaluation she was laying down in bed, opening her eyes but not following command or responding appropriately to questions. Denied any active pain but moaning in bed. She was hypoxemic on arrival to the emergency room. No known previous cardiac history Home Medications & Allergies Allergies: Coded Allergies: Penicillins (Verified Allergy, Unknown, 01/05/19) tramadol (Verified Allergy, Unknown, 01/05/19) Home Medication List Reviewed: Yes LWU-Bhlqrh-Hybtlx Hx Patient Social History Marital Status: single Recreational Drug Use: Yes Drug of Choice: positive for methamphetamines and marijuana Smoking Status: Current Everyday Smoker Type Used: Cigarettes 2nd Hand Smoke Exposure: Yes Recent Hopitalizations: No Have you traveled recently?: Unable to obtain Alcohol Use?: Unable to obtain Substance type: Amphetamines, Methamphetamine, Marijuana Past Medical History Discussed below Family Medical History Family Medical Hx Noncontributory Review of Systems-General Review of Systems Constitutional: see HPI, weakness, other (unable to provide review of systems) EENTM: see HPI Respiratory: see HPI Cardiovascular: see HPI Gastrointestinal: see HPI Genitourinary: see HPI Musculoskeletal: see HPI Skin: see HPI Psychiatric/Neurological: See HPI All Other Systems Reviewed Negative Unless Noted: Yes Reviewed Test Results Reviewed Test Results Lab Laboratory Tests Test 05/13/20 09:35 05/13/20 15:10 05/13/20 15:52 05/13/20 16:13 Range/Units White Blood Count 17.9 H 4.3-11.0 10^3/uL Red Blood Count 5.34 4.35-5.85 10^6/uL Hemoglobin 16.7 H 11.5-16.0 G/DL Hematocrit 47 35-52 % Mean Corpuscular Volume 88 80-99 FL Mean Corpuscular Hemoglobin 31 25-34 PG Mean Corpuscular Hemoglobin Concent 36 32-36 G/DL Red Cell Distribution Width 12.7 10.0-14.5 % Platelet Count 347 130-400 10^3/uL Mean Platelet Volume 10.1 7.4-10.4 FL Immature Granulocyte % (Auto) 1 % Neutrophils (%) (Auto) 83 H 42-75 % Lymphocytes (%) (Auto) 11 L 12-44 % Monocytes (%) (Auto) 6 0-12 % Eosinophils (%) (Auto) 0 0-10 % Basophils (%) (Auto) 0 0-10 % Neutrophils # (Auto) 14.9 H 1.8-7.8 X 10^3 Lymphocytes # (Auto) 1.9 1.0-4.0 X 10^3 Monocytes # (Auto) 1.0 0.0-1.0 X 10^3 Eosinophils # (Auto) 0.0 0.0-0.3 10^3/uL Basophils # (Auto) 0.0 0.0-0.1 10^3/uL Immature Granulocyte # (Auto) 0.1 0.0-0.1 10^3/uL Neutrophils % (Manual) 76 % Lymphocytes % (Manual) 9 % Monocytes % (Manual) 5 % Eosinophils % (Manual) 0 % Basophils % (Manual) 0 % Band Neutrophils 10 % Blood Morphology Comment NORMAL Sodium Level 144 135-145 MMOL/L Potassium Level 3.1 L 3.6-5.0 MMOL/L Chloride Level 106 98-107 MMOL/L Carbon Dioxide Level 19 L 21-32 MMOL/L Anion Gap 19 H 5-14 MMOL/L Blood Urea Nitrogen 43 H 7-18 MG/DL Creatinine 1.49 H 0.60-1.30 MG/DL Estimat Glomerular Filtration Rate 36 BUN/Creatinine Ratio 29 Glucose Level 114 H 70-105 MG/DL Lactic Acid Level 1.58 1.80 0.50-2.00 MMOL/L Calcium Level 9.7 8.5-10.1 MG/DL Corrected Calcium 9.8 8.5-10.1 MG/DL Total Bilirubin 0.4 0.1-1.0 MG/DL Aspartate Amino Transf (AST/SGOT) 59 H 5-34 U/L Alanine Aminotransferase (ALT/SGPT) 59 H 0-55 U/L Alkaline Phosphatase 79 40-136 U/L Troponin I < 0.30 0.057 H <0.028 NG/ML Pro-B-Type Natriuretic Peptide 1773.0 H <75.0 PG/ML Total Protein 8.9 H 6.4-8.2 GM/DL Albumin 3.9 3.2-4.5 GM/DL Magnesium Level 2.1 1.6-2.4 MG/DL Ammonia 48 H 11-32 UMOL/L Glucometer 120 H 70-110 MG/DL Test 05/13/20 16:25 05/13/20 20:28 05/13/20 21:17 05/14/20 06:00 Range/Units Blood Gas Puncture Site LR Blood Gas Patient Temperature 36.4 Arterial Blood pH 7.43 7.37-7.43 Arterial Blood Partial Pressure CO2 29 L 35-45 MMHG Arterial Blood Partial Pressure O2 61 L 79-93 MMHG Arterial Blood HCO3 19 L 23-27 MMOL/L Arterial Blood Total CO2 19.6 L 21.0-31.0 MMOL/L Arterial Blood Oxygen Saturation 90 L 94-100 % Arterial Blood Base Excess -5.0 L -2.5-2.5 MMOL/L Seven Test YES-POS Blood Gas Ventilator Setting NO Blood Gas Inspired Oxygen 4L Glucometer 119 H 70-110 MG/DL Troponin I 0.066 H 0.050 H <0.028 NG/ML White Blood Count 23.5 H 4.3-11.0 10^3/uL Red Blood Count 5.13 H 3.80-5.11 10^6/uL Hemoglobin 15.9 11.5-16.0 g/dL Hematocrit 46 35-52 % Mean Corpuscular Volume 89 80-99 fL Mean Corpuscular Hemoglobin 31 25-34 pg Mean Corpuscular Hemoglobin Concent 35 32-36 g/dL Red Cell Distribution Width 13.0 10.0-14.5 % Platelet Count 330 130-400 10^3/uL Mean Platelet Volume 10.3 9.0-12.2 fL Immature Granulocyte % (Auto) 1 % Neutrophils (%) (Auto) 81 H 42-75 % Lymphocytes (%) (Auto) 11 L 12-44 % Monocytes (%) (Auto) 7 0-12 % Eosinophils (%) (Auto) 0 0-10 % Basophils (%) (Auto) 0 0-10 % Neutrophils # (Auto) 18.9 H 1.8-7.8 10^3/uL Lymphocytes # (Auto) 2.7 1.0-4.0 10^3/uL Monocytes # (Auto) 1.7 H 0.0-1.0 10^3/uL Eosinophils # (Auto) 0.0 0.0-0.3 10^3/uL Basophils # (Auto) 0.1 0.0-0.1 10^3/uL Immature Granulocyte # (Auto) 0.1 0.0-0.1 10^3/uL Sodium Level 143 135-145 MMOL/L Potassium Level 3.7 3.6-5.0 MMOL/L Chloride Level 109 H 98-107 MMOL/L Carbon Dioxide Level 17 L 21-32 MMOL/L Anion Gap 17 H 5-14 MMOL/L Blood Urea Nitrogen 51 H 7-18 MG/DL Creatinine 1.52 H 0.60-1.30 MG/DL Estimat Glomerular Filtration Rate 35 BUN/Creatinine Ratio 34 Glucose Level 115 H 70-105 MG/DL Calcium Level 9.6 8.5-10.1 MG/DL Corrected Calcium 9.9 8.5-10.1 MG/DL Total Bilirubin 0.6 0.1-1.0 MG/DL Aspartate Amino Transf (AST/SGOT) 56 H 5-34 U/L Alanine Aminotransferase (ALT/SGPT) 51 0-55 U/L Alkaline Phosphatase 66 40-136 U/L Total Protein 9.0 H 6.4-8.2 GM/DL Albumin 3.6 3.2-4.5 GM/DL Physical Exam Physical Exam Vital Signs Vital Signs - First Documented 05/13/20 05/13/20 05/13/20 08:14 13:07 22:41 Temp 36.3 Pulse 137 Resp 23 B/P (MAP) 141/92 (108) Pulse Ox 95 O2 Delivery Room Air O2 Flow Rate 3.00 FiO2 21 Capillary Refill : Less Than 3 SecondsLess Than 3 Seconds Height, Weight, BMI Height: '" Weight: lbs. oz. kg; 29.00 BMI Method: General Appearance: No Apparent Distress, WD/WN Eyes: Bilateral Eye Normal Inspection, Bilateral Eye PERRL HEENT: PERRL/EOMI, Pharynx Normal; No Moist Mucous Membranes Neck: Non Tender, Supple Respiratory: No Accessory Muscle Use, No Respiratory Distress; No Wheezing Cardiovascular: Regular Rate, Rhythm, No Edema, Normal Peripheral Pulses, Tachycardia Gastrointestinal: Normal Bowel Sounds, Non Tender, Soft Extremity: Non Tender, No Calf Tenderness, No Pedal Edema Neurologic/Psychiatric: Disoriented, Other (Somnolent) Skin: Normal Color, Warm/Dry A/P-Cardiology Admission Diagnosis Non-ST elevation myocardial infarction Pneumonia Change in mental status Acute renal failure Assessment/Plan Non-ST elevation myocardial infarction, mild elevation in troponin level probably type II myocardial infarction secondary to hypoxemia. Conservative management is recommended at this point. Continue to monitor, evaluate 2-D e cho, starting aspirin 81 mg daily. Pneumonia with acute on chronic respiratory failure, receiving oxygen and antibiotics. Continue to monitor closely Change in mental status, encephalopathy, probably metabolic in addition to illicit drug use. Urinary tract infection, receiving antibiotics. Continue to monitor Metabolic acidosis with acute renal failure, continue on IV fluid and monitor History of illicit drug use, urine toxicology showed methamphetamine and marijuana use YARITZA GUNN MD May 14, 2020 09:35
[2020-05-14] MEDS: UMECLIDINIUM BROMIDE (INCRUSE ELLIPTA) 7'S IH SCH (10:09)
--- NOTE | 2020-05-14 10:12 | NUR ---
pt could not do incruse inhaler due to delirium.
[2020-05-14 12:00] VITALS: BP 121/81
--- NOTE | 2020-05-14 12:45 | Progress Note - Hospitalist ---
INOCENTE OWENS,MED STUDENT 05/14/20 1245: Subjective HPI/CC On Admission Date Seen by Provider: May 14, 2020 Patient is a 59yo female with a PMH of COPD, hypertension, and polysubstance abuse presenting from [facility] ED via EMS due to altered mental status, chest pain and shortness of breath. She has chronic respiratory failure requiring supplemental oxygen and was found this morning by EMS not wearing her home oxygen. Per EMS, O2 sats were in the upper 80's, and during transport to ED she was placed on oxygen and sats were in the low 90's on arrival. She is oriented to place, but not person or date. She is somnolent and has rambling, in comprehensible speech. Due to her clinical condition patient history is limited. Subjective/Events-last exam Still confused today, not oriented to location or year. Per radiology, no large ischemia, mass or hemorrhage on CT. Focused Exam Lactate Level 05/13/20 09:35: Lactic Acid Level 1.58 05/13/20 15:52: Lactic Acid Level 1.80 Objective Exam Vital Signs Vital Signs Date Time Temp Pulse Resp B/P (MAP) Pulse Ox O2 Delivery O2 Flow Rate FiO2 05/14/20 12:00 36.3 103 20 121/81 (94) 94 Nasal Cannula 2.00 05/13/20 22:41 21 Capillary Refill : Less Than 3 SecondsLess Than 3 Seconds Results/Procedures Lab Laboratory Tests 05/14/20 06:00 Patient resulted labs reviewed. Assessment/Plan Assessment and Plan Assess & Plan/Chief Complaint Altered mental status Reports last methamphetamine use 7 days ago No large ischemia, mass or hemorrhage on CT per radiology Hypokalemia Resolved Continue to monitor LLL pneumonia with possible aspiration On cefepime and clindamycin On 2L O2 via NC Acute kidney injury On IV fluids Continue to monitor renal function NSTEMI Mild elevation in troponin trending down Cardiology consulted, recommend conservative management Echo pending Methamphetamine and marijuana abuse COPD On 2L NC NEO ESCOBAR MD 05/14/20 7432: Subjective HPI/CC On Admission Time Seen by Provider: 11:00 Objective Exam General Appearance: No Apparent Distress, Chronically ill Respiratory: Lungs Clear, No Accessory Muscle Use Cardiovascular: Regular Rate, Rhythm, No Murmur Neurologic/Psychiatric: Other (alert, waxing and waning mentation) Assessment/Plan Assessment and Plan Assess & Plan/Chief Complaint Patient slightly more alert today. Was unable to tell me her name but unaware of location just stated she was "right here." She did admit to IV meth use and her last use was 7 days ago. She then continued to rambling about a baby. RN discussed this with her daughter and apparently she has been carrying for a baby at home but now the daughter is. Will have foster care social worker consulted to evaluate this situation. daughter also reported that they found suboxone in her house that she had taken. They are unsure how much though. Given long half life this is more consistent with her continued confusion. Will continue on IV abx to cover for infection. End tidal monitor ordered. Troponin trending down. Supervisory-Addendum Brief Verification & Attestation Participated in pt care: history, MDM, physical Personally performed: exam, history, MDM, supervision of care Care discussed with: Medical Student Procedures: n/a Results interpretation: Verified all documentation Verification and Attestation of Medical Student E/M Service A medical student performed and documented this service in my presence. I reviewed and verified all information documented by the medical student and made modifications to such information, when appropriate. I personally performed the physical exam and medical decision making. Neo Escobar, May 14, 2020,14:44 INOCENTE OWENS,MED STUDENT May 14, 2020 12:45 NEO ESCOBAR MD May 14, 2020 14:48
[2020-05-14 15:32] VITALS: BP 130/87
[2020-05-14 19:30] VITALS: BP 135/98
[2020-05-14] MEDS: traZODone 100 MG (DESYREL) TAB PO SCH (20:40)
--- NOTE | 2020-05-14 20:56 | NUR ---
Patient refused all 2100 MEDS
[2020-05-15 00:47] VITALS: BP 142/94
[2020-05-15] MEDS: CLINDAMYCIN 600 MG/50 ML IVPB 50 ML IV SCH ×3 (02:02→17:08)
[2020-05-15] MEDS: RT-ALBUTEROL/IPRATROPIUM 3 ML (DUONEB) VIAL INH SCH ×4 (03:17→21:14)
[2020-05-15 03:48] VITALS: BP 144/92
[2020-05-15 05:06] LABS: HEMOGLOBIN 16.2 g/dL (11.5-16.0); MEAN PLATELET VOLUME 10.1 fL (9.0-12.2); WHITE BLOOD COUNT 17.5 10^3/uL (4.3-11.0)
[2020-05-15 05:21] LABS: POTASSIUM 3.3 MMOL/L (3.6-5.0)
[2020-05-15 05:22] LABS: CALCIUM 10.1 MG/DL (8.5-10.1)
[2020-05-15 05:27] LABS: CREATININE SERUM 1.43 MG/DL (0.60-1.30)
[2020-05-15] MEDS: CATHETER FLUSH 10 ML SYR IV SCH ×3 (05:43→20:03)
[2020-05-15] MEDS: FUROSEMIDE 40 MG/4 ML INJ (LASIX) IV SCH (05:43)
--- NOTE | 2020-05-15 06:59 | Pulmonary Progress Note ---
Subjective Time Seen by a Provider: 06:55 Sepsis Event Evaluation Height, Weight, BMI Height: '" Weight: lbs. oz. kg; 29.00 BMI Method: Focused Exam Lactate Level 05/13/20 09:35: Lactic Acid Level 1.58 05/13/20 15:52: Lactic Acid Level 1.80 Exam Exam Vital Signs Date Time Temp Pulse Resp B/P (MAP) Pulse Ox O2 Delivery O2 Flow Rate FiO2 05/15/20 03:48 37.1 99 20 144/92 (109) 94 Nasal Cannula 2.00 05/15/20 01:00 111 05/15/20 00:47 36.8 102 18 142/94 (110) 94 Nasal Cannula 2.00 05/14/20 21:00 Nasal Cannula 2.00 05/14/20 19:30 37.7 115 18 135/98 (110) 92 Nasal Cannula 2.00 05/14/20 19:00 118 05/14/20 18:52 93 Nasal Cannula 2.00 05/14/20 15:32 37.4 117 20 130/87 (101) 92 Nasal Cannula 2.00 05/14/20 15:18 93 Nasal Cannula 2.00 05/14/20 13:00 109 05/14/20 12:00 36.3 103 20 121/81 (94) 94 Nasal Cannula 2.00 05/14/20 10:10 96 Nasal Cannula 4.00 05/14/20 09:00 96 Nasal Cannula 4.00 05/14/20 08:00 34.9 109 20 114/85 (95) 94 Nasal Cannula 2.00 05/14/20 07:00 109 I & O 05/15/20 07:00 Intake Total 250 ml Balance 250 ml Height & Weight Height: '" Weight: lbs. oz. kg; 29.00 BMI Method: General Appearance: No Apparent Distress, WD/WN HEENT: PERRL/EOMI, Pharynx Normal; No Moist Mucous Membranes Neck: Non Tender, Supple Respiratory: No Accessory Muscle Use, No Respiratory Distress; No Wheezing Cardiovascular: No Edema, Normal Peripheral Pulses, Tachycardia Capillary Refill: Less Than 3 Seconds Extremity: Non Tender, No Calf Tenderness, No Pedal Edema Neurologic/Psychiatric: Disoriented, Other (Somnolent) Skin: Normal Color, Warm/Dry Results Lab Laboratory Tests 1/29/21 09:35 05/14/20 06:00 05/15/20 05:00 Assessment/Plan Assessment/Plan Pneumonia with probable aspiration and hypoxia -Oxygen -cefepime add Clindamycin Pulmonary edema -Lasix hypokalemia -replace Metabolic encephalopathy -Montior KELSIE -Monitor Methamphetamine and marijuanna use UTI -Rocephin Bipolar hx KELSIE -IVF -Monitor NSTEMI -Cardiology following USAMA RIZO DO May 15, 2020 06:59
[2020-05-15 08:00] VITALS: BP 159/104
[2020-05-15] MEDS ORDERED: KCL 20 MEQ TAB (K-DUR) PO ONE (08:00)
[2020-05-15] MEDS: CEFEPIME INJECTION 1,000 MG in WATER (STERILE) FOR INJECTION 10 ML IV SCH ×3 (08:35→23:58)
[2020-05-15] MEDS: RIFAXIMIN 550 MG TABLET (XIFAXAN) PO SCH ×2 (08:36→20:00)
[2020-05-15] MEDS: PANTOPRAZOLE 20 MG TABLET (PROTONIX) PO SCH (08:36)
[2020-05-15] MEDS: ASPIRIN 81 MG CHEW (CHILDREN'S ASA) PO SCH (08:36)
[2020-05-15] MEDS: LACTULOSE SYRUP 10GM/15ML (ENULOSE) 30ML UDC PO SCH ×2 (08:36→20:01)
[2020-05-15] MEDS: UMECLIDINIUM BROMIDE (INCRUSE ELLIPTA) 7'S IH SCH (09:13)
--- NOTE | 2020-05-15 09:37 | Progress Note - Hospitalist ---
Subjective HPI/CC On Admission Date Seen by Provider: May 15, 2020 Time Seen by Provider: 09:29 Patient is a 59yo female with a PMH of COPD, hypertension, and polysubstance abuse presenting from [facility] ED via EMS due to altered mental status, chest pain and shortness of breath. She has chronic respiratory failure requiring supplemental oxygen and was found this morning by EMS not wearing her home oxygen. Per EMS, O2 sats were in the upper 80's, and during transport to ED she was placed on oxygen and sats were in the low 90's on arrival. She is oriented to place, but not person or date. She is somnolent and has rambling, in comprehensible speech. Due to her clinical condition patient history is limited. Subjective/Events-last exam Pt more alert today. Refusing to take any oral medications. States her daughter is on her way to take her to [place]. Confirmed with nurse who has spoken with the daughter and she is not on her way here. Patient does report now that she took a friends suboxone "to get high" prior to this happening. Focused Exam Lactate Level 05/13/20 09:35: Lactic Acid Level 1.58 05/13/20 15:52: Lactic Acid Level 1.80 Objective Exam Vital Signs Vital Signs Date Time Temp Pulse Resp B/P (MAP) Pulse Ox O2 Delivery O2 Flow Rate FiO2 05/15/20 08:00 36.6 104 20 159/104 (122) 93 Nasal Cannula 2.00 05/13/20 22:41 21 Capillary Refill : Less Than 3 SecondsLess Than 3 Seconds General Appearance: No Apparent Distress, Chronically ill Respiratory: Lungs Clear, No Respiratory Distress Cardiovascular: Regular Rate, Rhythm, No Murmur Gastrointestinal: Normal Bowel Sounds, Non Tender, Soft Neurologic/Psychiatric: Alert, Other (oriented to person and place and occasionally some details) Results/Procedures Lab Laboratory Tests 05/15/20 05:00 Patient resulted labs reviewed. Assessment/Plan Assessment and Plan Assess & Plan/Chief Complaint Altered mental status Illicit drug abuse Mentation improving, reports friend is diverting medicines to her, specifically suboxone ground services instructor consulted Recommend cessation Slowly improving, hopeful for DC in the next day or two if mentation continues to improve Currently refusing oral meds COPD with chronic respiratory failure On baseline oxygen Pulm consulted, appreciate recs MAT protocol NSTEMI, Type II VA Trending down Cardiology consulted, appreciate recs DVT ppx : Lovenox Diagnosis/Problems Diagnosis/Problems (1) Encephalopathy Status: Acute (2) UTI (urinary tract infection) Qualifiers: Urinary tract infection type: acute cystitis Hematuria presence: without hematuria Qualified Codes: N30.00 - Acute cystitis without hematuria (3) COPD (chronic obstructive pulmonary disease) Status: Chronic Qualifiers: COPD type: unspecified COPD Qualified Codes: J44.9 - Chronic obstructive pulmonary disease, unspecified (4) Bipolar disorder Status: Chronic Qualifiers: Active/Remission status: remission status unspecified Qualified Codes: F31.9 - Bipolar disorder, unspecified (5) KELSIE (acute kidney injury) Status: Acute (6) Leukocytosis Status: Acute Qualifiers: Leukocytosis type: bandemia Qualified Codes: D72.825 - Bandemia (7) Marijuana abuse Status: Chronic (8) Chest pain Status: Acute Qualifiers: Chest pain type: unspecified Qualified Codes: R07.9 - Chest pain, unspecified (9) Methamphetamine abuse Status: Acute NEO HOBBS MD May 15, 2020 09:37
[2020-05-15] MEDS: ENOXAPARIN 40 MG/0.4 ML (LOVENOX) SYR SQ SCH (10:36)
--- NOTE | 2020-05-15 11:31 | Cardiology Progress Note ---
Subjective Date Seen by Provider: May 15, 2020 Time Seen by Provider: 11:29 Subjective/Events-last exam Patient is laying down in bed, lethargic, still confused, refusing to take pills Review of Systems General: No Chills, No Night Sweats; Fatigue, Malaise; No Appetite, No Other HEENT: No Head Aches, No Visual Changes, No Eye Pain, No Ear Pain, No Dysphasia, No Sinus Congestion, No Post Nasal Drip, No Sore Throat, No Other Pulmonary: No Dyspnea, No Cough, No Pleuritic Chest Pain, No Other Cardiovascular: No: Chest Pain, Palpitations, Orthopnea, Paroxysmal Noc. Dyspnea, Edema, Lt Headedness, Other Focused Exam Lactate Level 05/13/20 09:35: Lactic Acid Level 1.58 05/13/20 15:52: Lactic Acid Level 1.80 Objective-Cardiology Exam Last Set of Vital Signs Vital Signs 05/13/20 05/15/20 22:41 08:00 Temp 36.6 Pulse 104 Resp 20 B/P (MAP) 159/104 (122) Pulse Ox 93 O2 Delivery Nasal Cannula O2 Flow Rate 2.00 FiO2 21 Capillary Refill : Less Than 3 SecondsLess Than 3 Seconds I&O Intake and Output 05/15/20 00:00 Intake Total 360 ml Balance 360 ml Intake Oral 300 ml IV Total 60 ml # Voids 10 General: Alert, Cooperative, No Acute Distress HEENT: Atraumatic, PERRLA Neck: Supple, No JVD, No Thyromegaly Lungs: Clear to Auscultation, Normal Air Movement Heart: Regular Rate, Normal S1, Normal S2, No Murmurs Abdomen: Normal Bowel Sounds, Soft, No Tenderness, No Hepatosplenomegaly, No Masses Extremities: No Clubbing, No Cyanosis, No Edema, Normal Pulses, No Tenderness/Swelling Skin: No Rashes, No Breakdown, No Significant Lesion Neuro: Normal Speech, Normal Tone, Sensation Intact Psych/Mental Status: Other (depressed mental status and mood) Results Lab Laboratory Tests 05/15/20 05:00 A/P-Cardiology Admission Diagnosis Non-ST elevation myocardial infarction Pneumonia Change in mental status Acute renal failure Assessment/Plan Non-ST elevation myocardial infarction, mild elevation in troponin level probably type II myocardial infarction secondary to hypoxemia. Conservative management is recommended at this point. Continue to monitor Pneumonia with acute on chronic respiratory failure, receiving oxygen and antibiotics. Continue to monitor closely Change in mental status, encephalopathy, multiple substance abuse, managed by primary care team Urinary tract infection, receiving antibiotics. Continue to monitor Metabolic acidosis with acute renal failure, continue on IV fluid and monitor History of illicit drug use, urine toxicology showed methamphetamine and m arijuana use Complex management issue, I am considering doing cardiac catheterization but I have significant concern regarding her compliance with medication, she is actually refusing to take pills while she is in the hospital, if she require any intervention, patient will need to be on aspirin and Plavix for 3-6 months. I will postpone the procedure until she is more cooperative. YARITZA GUNN MD May 15, 2020 11:31
[2020-05-15 12:00] VITALS: BP 120/80
[2020-05-15 15:46] VITALS: BP 136/97
[2020-05-15] MEDS: traZODone 100 MG (DESYREL) TAB PO SCH (20:00)
[2020-05-15 20:21] VITALS: BP 127/85
--- NOTE | 2020-05-15 21:00 | NUR ---
Patient refused lactulose but did take her other scheduled medications.
[2020-05-16 00:23] VITALS: BP 142/89
--- NOTE | 2020-05-16 00:29 | NUR ---
Patient pulled out IV that was in her left forehead. Minimal bleeding. IV catheter intact.
[2020-05-16] MEDS: CLINDAMYCIN 600 MG/50 ML IVPB 50 ML IV SCH ×2 (02:00→10:40)
[2020-05-16] MEDS: RT-ALBUTEROL/IPRATROPIUM 3 ML (DUONEB) VIAL INH SCH ×2 (02:37→10:16)
[2020-05-16 04:00] VITALS: BP 109/82
[2020-05-16] MEDS: CATHETER FLUSH 10 ML SYR IV SCH (05:23)
[2020-05-16] MEDS: PANTOPRAZOLE 20 MG TABLET (PROTONIX) PO SCH (07:55)
[2020-05-16] MEDS: ASPIRIN 81 MG CHEW (CHILDREN'S ASA) PO SCH (07:55)
[2020-05-16] MEDS: RIFAXIMIN 550 MG TABLET (XIFAXAN) PO SCH (07:56)
[2020-05-16] MEDS: LACTULOSE SYRUP 10GM/15ML (ENULOSE) 30ML UDC PO SCH (07:56)
[2020-05-16] MEDS: CEFEPIME INJECTION 1,000 MG in WATER (STERILE) FOR INJECTION 10 ML IV SCH (07:56)
[2020-05-16 08:00] VITALS: BP 132/90
--- NOTE | 2020-05-16 09:09 | Pulmonary Progress Note ---
Subjective Time Seen by a Provider: 09:07 Subjective/Events-last exam Pt is more alert today. Sepsis Event Evaluation Height, Weight, BMI Height: '" Weight: lbs. oz. kg; 31.41 BMI Method: Focused Exam Lactate Level 05/13/20 09:35: Lactic Acid Level 1.58 05/13/20 15:52: Lactic Acid Level 1.80 Exam Exam Vital Signs Date Time Temp Pulse Resp B/P (MAP) Pulse Ox O2 Delivery O2 Flow Rate FiO2 05/16/20 04:00 35.8 113 20 109/82 (91) 94 Nasal Cannula 2.00 05/16/20 02:37 97 Nasal Cannula 1.00 05/16/20 01:00 62 05/16/20 00:23 35.8 113 17 142/89 (106) 97 Room Air 05/15/20 21:14 93 Nasal Cannula 1.00 05/15/20 20:21 35.3 89 18 127/85 (99) 95 Room Air 05/15/20 20:11 Nasal Cannula 2.00 05/15/20 19:01 122 05/15/20 15:46 36.2 130 18 136/97 (110) 97 Nasal Cannula 2.00 05/15/20 13:00 97 05/15/20 12:00 36.0 89 20 120/80 (93) 97 Nasal Cannula 2.00 I & O 05/16/20 07:00 Intake Total 2580 ml Balance 2580 ml Height & Weight Height: '" Weight: lbs. oz. kg; 31.41 BMI Method: General Appearance: No Apparent Distress, Chronically ill HEENT: PERRL/EOMI, Pharynx Normal; No Moist Mucous Membranes Neck: Non Tender, Supple Respiratory: Lungs Clear, No Accessory Muscle Use Cardiovascular: Regular Rate, Rhythm, No Murmur Capillary Refill: Less Than 3 Seconds Extremity: Non Tender, No Calf Tenderness, No Pedal Edema Neurologic/Psychiatric: Other (alert, waxing and waning mentation) Skin: Normal Color, Warm/Dry Results Lab Laboratory Tests 05/15/20 05:00 Assessment/Plan Assessment/Plan Pneumonia with probable aspiration and hypoxia -Oxygen -cefepime add Clindamycin Pulmonary edema -monitor -Repeat CXR Metabolic encephalopathy -Montior KELSIE -Monitor Methamphetamine and marijuanna use UTI -Rocephin Bipolar hx KELSIE -IVF -Monitor NSTEMI -Cardiology following USAMA RIZO DO May 16, 2020 09:09
--- NOTE | 2020-05-16 10:14 | Diagnostic Imaging Report ---
INDICATION: Shortness of air. COMPARISON: 05/14/2020. FINDINGS: Single frontal view of the chest demonstrates normal heart size and pulmonary vascularity. The lungs are well aerated and clear. No large pleural effusion or pneumothorax is seen. The visualized osseous structures show no acute abnormalities. IMPRESSION: 1. No acute cardiopulmonary process. Dictated by: Dictated on workstation # [id number]
[2020-05-16] MEDS: UMECLIDINIUM BROMIDE (INCRUSE ELLIPTA) 7'S IH SCH (10:22)
[2020-05-16] MEDS: ENOXAPARIN 40 MG/0.4 ML (LOVENOX) SYR SQ SCH (10:40)
--- NOTE | 2020-05-16 11:06 | Cardiology Progress Note ---
Subjective Date Seen by Provider: May 16, 2020 Time Seen by Provider: 11:01 Subjective/Events-last exam Patient is laying down in bed, flat affect, no new complaint Review of Systems General: No Chills, No Night Sweats; Fatigue, Malaise; No Appetite, No Other HEENT: No Head Aches, No Visual Changes, No Eye Pain, No Ear Pain, No Dysphasia, No Sinus Congestion, No Post Nasal Drip, No Sore Throat, No Other Pulmonary: Dyspnea; No Cough, No Pleuritic Chest Pain, No Other Cardiovascular: No: Chest Pain, Palpitations, Orthopnea, Paroxysmal Noc. Dyspnea, Edema, Lt Headedness, Other Focused Exam Lactate Level 05/13/20 15:52: Lactic Acid Level 1.80 Objective-Cardiology Exam Last Set of Vital Signs Vital Signs 05/13/20 05/16/20 05/16/20 22:41 08:00 10:16 Temp 35.2 Pulse 111 Resp 18 B/P (MAP) 132/90 (104) Pulse Ox 93 O2 Delivery Room Air O2 Flow Rate 2.00 FiO2 21 Capillary Refill : Less Than 3 SecondsLess Than 3 Seconds I&O Intake and Output 05/16/20 00:00 Intake Total 2230 ml Balance 2230 ml Intake Oral 2230 ml # Voids 5 General: Alert, Cooperative, No Acute Distress HEENT: Atraumatic, PERRLA Neck: Supple, No JVD, No Thyromegaly Lungs: Clear to Auscultation, Normal Air Movement Heart: Regular Rate, Normal S1, Normal S2, No Murmurs Abdomen: Normal Bowel Sounds, Soft, No Tenderness, No Hepatosplenomegaly, No Masses Extremities: No Clubbing, No Cyanosis, No Edema, Normal Pulses, No Tenderness/Swelling Skin: No Rashes, No Breakdown, No Significant Lesion Neuro: Normal Speech, Normal Tone, Sensation Intact Psych/Mental Status: Other (depressed mental status and mood) A/P-Cardiology Admission Diagnosis Non-ST elevation myocardial infarction Pneumonia Change in mental status Acute renal failure Assessment/Plan Non-ST elevation myocardial infarction, mild elevation in troponin level probably type II myocardial infarction secondary to hypoxemia. Conservative management is recommended at this point. Continue to monitor Pneumonia with acute on chronic respiratory failure, receiving oxygen and antibiotics. Continue to monitor closely Change in mental status, encephalopathy, multiple substance abuse, managed by primary care team Urinary tract infection, receiving antibiotics. Continue to monitor Metabolic acidosis with acute renal failure, continue on IV fluid and monitor History of illicit drug use, urine toxicology showed methamphetamine and marijuana use Complex management issue, I am considering doing cardiac catheterization but I have significant concern regarding her compliance with medication, she is actually refusing to take pills while she is in the hospital, if she require any intervention, patient will need to be on aspirin and Plavix for 3-6 months. I will postpone the procedure until she is more cooperative. YARITZA GUNN MD May 16, 2020 11:06
[2020-05-16 12:00] VITALS: BP 118/84
--- NOTE | 2020-05-16 12:30 | NUR ---
Spoke with and updated patients daughter at this time. Daughter states she will be at the ED in about an hour to lemon picker her mother
[2020-05-16 13:16] LABS: BASOPHILS % (AUTO) 0 % (0-10); EOSINOPHILS # (AUTO) 0.1 10^3/uL (0.0-0.3); EOSINOPHILS % (AUTO) 1 % (0-10); HEMATOCRIT 42 % (35-52); HEMOGLOBIN 14.9 g/dL (11.5-16.0); LYMPHOCYTES % (AUTO) 23 % (12-44); MEAN CORPUSCULAR HEMOGLOBIN 32 pg (25-34); MEAN CORPUSCULAR HGB CONC 35 g/dL (32-36); MEAN CORPUSCULAR VOLUME 89 fL (80-99); MEAN PLATELET VOLUME 10.3 fL (9.0-12.2); MONOCYTES # (AUTO) 0.8 10^3/uL (0.0-1.0); MONOCYTES % (AUTO) 6 % (0-12); NEUTROPHILS # (AUTO) 9.1 10^3/uL (1.8-7.8); NEUTROPHILS % (AUTO) 69 % (42-75); PLATELET COUNT 270 10^3/uL (130-400); WHITE BLOOD COUNT 13.1 10^3/uL (4.3-11.0)
--- NOTE | 2020-05-16 13:21 | Discharge Summary ---
Discharge Summary Hospital Course Was the Problem List Reviewed?: Yes Problems/Dx: (1) Encephalopathy Status: Acute (2) UTI (urinary tract infection) Qualifiers: Qualified Codes: N30.00 - Acute cystitis without hematuria (3) COPD (chronic obstructive pulmonary disease) Status: Chronic Qualifiers: Qualified Codes: J44.9 - Chronic obstructive pulmonary disease, unspecified (4) Bipolar disorder Status: Chronic Qualifiers: Qualified Codes: F31.9 - Bipolar disorder, unspecified (5) KELSIE (acute kidney injury) Status: Acute (6) Leukocytosis Status: Acute Qualifiers: Qualified Codes: D72.825 - Bandemia (7) Marijuana abuse Status: Chronic (8) Chest pain Status: Resolved Qualifiers: Qualified Codes: R07.9 - Chest pain, unspecified (9) Methamphetamine abuse Status: Acute Hospital Course Date of Admission: May 13, 2020 at 13:38 Admission Diagnosis: metabolic encephalopathy Family Physician/Provider: Miles Mix Physician Date of Discharge: 05/16/20 Discharge Diagnosis: acute methamphetamine intoxication Hospital Course: Nancy Car is a 59-year-old female who was admitted with acute encephalopathy. Her workup revealed that she was positive for amphetamines on her drug screen. She revealed that she had been using. Her encephalopathy improved. She had a slightly elevated troponin and cardiology was consulted. Conservative management was recommended. She should establish care with a primary care physician. Labs and Pending Lab Test: Laboratory Tests 05/16/20 13:00: White Blood Count [Pending], Red Blood Count [Pending], Hemoglobin [Pending], Hematocrit [Pending], Mean Corpuscular Volume [Pending], Mean Corpuscular Hemoglobin [Pending], Mean Corpuscular Hemoglobin Concent [Pending], Red Cell Distribution Width [Pending], Platelet Count [Pending], Mean Platelet Volume [Pending], Neutrophils (%) (Auto) [Pending], Lymphocytes (%) (Auto) [Pending], Monocytes (%) (Auto) [Pending], Eosinophils (%) (Auto) [Pending], Basophils (%) (Auto) [Pending], Neutrophils # (Auto) [Pending], Lymphocytes # (Auto) [Pending], Monocytes # (Auto) [Pending], Eosinophils # (Auto) [Pending], Basophils # (Auto) [Pending], Sodium Level [Pending], Potassium Level [Pending], Chloride Level [Pending], Carbon Dioxide Level [Pending], Anion Gap [Pending], Blood Urea Nitrogen [Pending], Creatinine [Pending], BUN/Creatinine Ratio [Pending], Glucose Level [Pending], Calcium Level [Pending], Magnesium Level [Pending] Microbiology 05/13/20 Blood Culture - Preliminary, Resulted No growth 05/13/20 Urine Culture - Final, Complete NO GROWTH Home Meds Active Reported Meloxicam 15 Mg Tablet 15 Mg PO DAILY Ibuprofen 800 Mg Tablet 800 Mg PO Q8H PRN Estradiol Tablet (Estradiol) 2 Mg Tablet 2 Mg PO DAILY Lamotrigine 100 Mg Tablet 100 Mg PO DAILY Trazodone HCl 100 Mg Tablet 100 Mg PO HS Hydrochlorothiazide 25 Mg Tablet 25 Mg PO DAILY Gabapentin 800 Mg Tablet 800 Mg PO TID Omeprazole 20 Mg Capsule.dr 20 Mg PO DAILY Proventil Hfa (Albuterol Sulfate) 6.7 Gm Hfa.aer.ad 2 Puff INH Q6H PRN Incruse Ellipta (Umeclidinium Mcgrew) 62.5 Mcg Blst.w.dev 1 Puff INH DAILY Baclofen 10 Mg Tablet 10 Mg PO BID Latuda (Lurasidone HCl) 40 Mg Tablet 40 Mg PO DAILY W/ MEAL Assessment/Pt Instructions Take medications as prescribed. Stop using methamphetamine. Establish care with a primary care physician. Discharge Planning: <30 minutes discharge planning Discharge Instructions Discharge Diet: No Restrictions Activity as Tolerated: Yes Discharge Physical Examination Vital Signs Vital Signs Date Time Temp Pulse Resp B/P (MAP) Pulse Ox O2 Delivery O2 Flow Rate FiO2 05/16/20 12:25 58 05/16/20 10:16 93 Room Air 05/16/20 08:00 35.2 18 132/90 (104) 2.00 05/13/20 22:41 21 General Appearance: No Apparent Distress, Obese Respiratory: Chest Non Tender, Lungs Clear, No Respiratory Distress Cardiovascular: Regular Rate, Rhythm, No Edema, No Murmur Gastrointestinal: Normal Bowel Sounds, Non Tender, Soft Extremity: Normal Inspection, Non Tender, No Pedal Edema Skin: Normal Color, Warm/Dry Neurologic/Psychiatric: Alert, Oriented x3, No Motor/Sensory Deficits, Normal Mood/Affect Allergies: Coded Allergies: Penicillins (Verified Allergy, Unknown, 01/05/19) tramadol (Verified Allergy, Unknown, 01/05/19) Discharge Summary Date of Admission May 13, 2020 at 13:38 Date of Discharge Discharge Date: May 16, 2020 Discharge Time: 13:20 Admission Diagnosis Encephalopathy Consults/Procedures Consulations cardiology Discharge Diagnosis (1) Encephalopathy Status: Acute (2) UTI (urinary tract infection) Qualifiers: Qualified Codes: N30.00 - Acute cystitis without hematuria (3) COPD (chronic obstructive pulmonary disease) Status: Chronic Qualifiers: Qualified Codes: J44.9 - Chronic obstructive pulmonary disease, unspecified (4) Bipolar disorder Status: Chronic Qualifiers: Qualified Codes: F31.9 - Bipolar disorder, unspecified (5) KELSIE (acute kidney injury) Status: Acute (6) Leukocytosis Status: Acute Qualifiers: Qualified Codes: D72.825 - Bandemia (7) Marijuana abuse Status: Chronic (8) Chest pain Status: Resolved Qualifiers: Qualified Codes: R07.9 - Chest pain, unspecified (9) Methamphetamine abuse Status: Acute (10) Methamphetamine intoxication RADHA WRIGHT MD May 16, 2020 13:19
[2020-05-16 13:30] LABS: CALCIUM 9.2 MG/DL (8.5-10.1); CREATININE SERUM 1.31 MG/DL (0.60-1.30); MAGNESIUM 2.3 MG/DL (1.6-2.4); POTASSIUM 2.9 MMOL/L (3.6-5.0)
--- NOTE | 2020-05-16 13:33 | NUR ---
CM/SS visited with the patient for discharge planning. Plan: The patient will discharge to home self care today. The patient states her daughter Vianca will provide transportation. Home: The patient lives at home alone. Substance use: The patient reports that she uses Methamphetamines. The patient did not give a specific time line but stated she has been using for a "long time". The patient reports that she does not think she will use again but doesn't know. Outpatient/Inpatient treatment: The patient states that she has been to [facility] in [place] for treatment in the past. DUNG/BOB offered to make an appointment for her to be reassessed. She declined at this time and stated she wants to make her own appointment. The patient reports she has been to an inpatient rehab during her time in [facility]; however, did not mention any other stays. DUNG/BOB discussed [facility] in [place] [facility]. The patient declined at this time. DUNG/BOB provided the patient with education on resources. She verbalized understanding. Supports: The patient reports having 3 daughters. No further needs.
--- NOTE | 2020-05-16 13:45 | NUR ---
"RD ASSESSMENT PMHx: COPD; HTN; polysubstance use (methamphetamine; marijuana); seizure disorder; CA(cervical); PT INTERACTION: Pt was awake and pleasant during nutrition assessment. Note pt has AMS, per chart review. Pt states current appetite is fine. Note avg PO intake <25% x2d, per chart review. Pt states following a regular diet at home, and has no issues with chewing/swallowing food. Pt states recent issues with constipation, and was unsure of when her last BM was. Note pt not currently on bowel regimen per chart review. Pt states recent wt loss, but was unsure of amount/timeframe. Note unable to determine recent wt hx, per chart review. Est. kcal needs: 3070-6290 kcal | 15-18 kcal/kg Est. Pro needs: 73-91 g Pro | 0.8-1.0 g Pro/kg PES STATEMENT: Inadequate oral intake (NI-2.1) related to loss of appetite and constipation, as evidenced by pt interview, and avg PO intake <25% x2d. INTERVENTION: Continue with current diet order of CHO 60g/m 1snack diet. Add Glucerna (vary) to meals TID, for increased kcal intake. Provides 220 kcal and 10 g Pro per serving. Encouraged pt to eat when able. Will continue to follow and reassess as pt needs, intake, and status change. Farideh GRADY, MS RD LD [phone] cell"
[2020-05-16] MEDS ORDERED: KCL 20 MEQ TAB (K-DUR) PO NR (14:00)
--- NOTE | 2020-05-16 14:22 | NUR ---
RONNIEDUY demonstrates understanding of discharge instructions and accurately returns instructions upon questioning. Copy of Post-Discharge Instructions and Medication Discharge Instructions given to patient and daughter. RONNIEDUY is able to manage continuing needs after discharge. Patients belongings returned to patient. Skin dry and intact; no breakdown noted. Patient discharged from [facility]- on 05/16/20 at 1420. DUY TRUJILLO left floor via wheelchair, accompanied by staff.
[2020-05-16 14:25] VITALS: BP 118/84
== END 2020-05-16 14:26 | disposition home or self-care (01) | DRG 896 ==
LOC: EDUNIT# 08:13 → ER FS 08:16 → 4TH 13:38
PROVIDERS: ADMIT Family Medicine; ATTEND Internal Medicine
DX: F15.129 Other stimulant abuse with intoxication, unspecified (principal); G93.41 Metabolic encephalopathy; I21.A1 Myocardial infarction type 2; J96.21 Acute and chronic respiratory failure with hypoxia; J18.9 Pneumonia, unspecified organism; E87.2 Acidosis; N17.9 Acute kidney failure, unspecified; N39.0 Urinary tract infection, site not specified; J44.9 Chronic obstructive pulmonary disease, unspecified; I10 Essential (primary) hypertension; F12.10 Cannabis abuse, uncomplicated; F19.10 Other psychoactive substance abuse, uncomplicated; F17.210 Nicotine dependence, cigarettes, uncomplicated; G40.909 Epilepsy, unspecified, not intractable, without status epilepticus; G89.29 Other chronic pain; M54.9 Dorsalgia, unspecified; F31.9 Bipolar disorder, unspecified; Z99.81 Dependence on supplemental oxygen; Z88.0 Allergy status to penicillin
CPT/HCPCS: 36415; 36600; 70450; 71045; 76937; 80048; 80053; 80306; 81000; 82140; 82805; 82962; 83605; 83735; 83880; 84484; 85007; 85025; 85027; 87040; 87088; 93306; 94640; 94760

== ENCOUNTER → 2020-12-28 | Outpatient (CLI) | payer MEDICARE, MEDICAID ==
[~2020-12-28] MED LIST changes: +BACL10TA PO; +ESTR2TAB PO; +GABA800T10 PO; +HYDR25TA4 PO; +LAMO100T5 PO; +LURA40TA3 PO; +MELO15TA39 PO; +OMEP20CA18 PO; +RT-ALBUINH INH; +TRAZ-227 PO; +UMEC62.5 INH
--- NOTE | 2020-12-28 17:40 | Diagnostic Imaging Report ---
INDICATION: Left-sided back pain. Left-sided sciatica. COMPARISON: None. FINDINGS: Frontal, lateral and oblique radiographic views of the lumbar spine were obtained. There is transitional lumbosacral anatomy. Evaluation with static alignment shows mild dextroscoliotic deformity epicentered at the L2-L3 level. There is also mild grade 1 anterolisthesis at L3-L4 and slight grade 1 retrolisthesis at L4-L5. There is no evidence of jumped facets. Vertebral body heights are maintained. There is no evidence of acute fracture. There are moderate multilevel degenerative changes, greatest at the L3-L4 through L5-S1 levels. This consists of intervertebral disc height loss with endplate osteophyte formations and multilevel facet arthropathy. Included small bowel loops are nondistended. Note is made of moderate calcified aortic atherosclerosis. Moderate colonic air and stool are also present. IMPRESSION: 1. No acute fracture or dislocation in the lumbar spine. 2. Moderate multilevel degenerative changes of the lower lumbar spine. Dictated by: Dictated on workstation # [id number]
== END ==
LOC: RAD FS 16:07
PROVIDERS: ATTEND Nurse Practitioner Family
DX: M54.42 Lumbago with sciatica, left side (principal); M47.897 Other spondylosis, lumbosacral region
CPT/HCPCS: 72110

== ENCOUNTER → 2021-06-05 | Outpatient (CLI) | payer MEDICARE, MEDICAID ==
[~2021-06-05] MED LIST changes: -ESTR2TAB PO; +ESTR2TAB3 PO
--- NOTE | 2021-06-05 16:13 | Diagnostic Imaging Report ---
INDICATION: Spondylosis and radiculopathy. Back pain. EXAMINATION: Lumbar spine MRI on 06/05/2021. COMPARISON: 05/10/2020. FINDINGS: There is grade 1 retrolisthesis of L4 on L5. There is partial sacralization of the L5 vertebral body, please see sagittal imaging for labeling purposes. The tip of the conus is unremarkable in appearance and location. L1-L2: There is disc desiccation with mild broad-based bulging disc material. There is bilateral facet and ligamentum flavum hypertrophy with no central stenosis. There is moderate bilateral neuroforaminal narrowing. L2-L3: There is disc desiccation with minimal broad-based bulging disc material. There is bilateral facet and ligamentum flavum hypertrophy with fluid in the facets bilaterally. Findings cause mild central stenosis with narrowing of the left lateral recess. There is moderate to severe bilateral neuroforaminal narrowing. These findings have slightly worsened since previous imaging. L3-L4: There is disc desiccation with a broad-based bulging disc. There is bilateral facet and ligamentum flavum hypertrophy with fluid in the facets bilaterally. There is secondary moderate central stenosis with narrowing of the lateral recesses bilaterally. This appears stable. There is moderate to severe bilateral neuroforaminal stenosis. L4-L5: There is intervertebral disc space narrowing, disc desiccation, and broad-based bulging disc material with bilateral facet and ligamentum flavum hypertrophy. There is narrowing of the left lateral recess without significant central stenosis. There is moderate to severe bilateral neuroforaminal stenosis. L5-S1: There is a right paracentral bulging disc with bilateral facet hypertrophy. There is no central stenosis. There is moderate bilateral neuroforaminal narrowing. The visualized intra-abdominal structures demonstrate no acute abnormality. A tiny cystic area is seen in the right kidney, too small for characterization. IMPRESSION: Multilevel diffuse degenerative disease, worsened at some levels as described above since previous imaging. Dictated by: Dictated on workstation # [id number]
== END ==
LOC: RAD 14:45
PROVIDERS: ATTEND Nurse Practitioner Family
DX: M48.07 Spinal stenosis, lumbosacral region (principal); M51.17 Intervertebral disc disorders with radiculopathy, lumbosacral region; M47.26 Other spondylosis with radiculopathy, lumbar region; Z98.890 Other specified postprocedural states; M43.16 Spondylolisthesis, lumbar region
CPT/HCPCS: 72148

== ENCOUNTER → 2021-09-14 | Outpatient (CLI) | payer MEDICARE, MEDICAID ==
[~2021-09-14] MED LIST changes: +LURA40TA2 PO; -LURA40TA3 PO; +RT-ALBUTEROL SULF 2.5 MG/3 ML PRE-MIX VIAL INH ONE
== END ==
LOC: RT 14:15
PROVIDERS: ATTEND Nurse Practitioner Family
DX: J44.9 Chronic obstructive pulmonary disease, unspecified (principal)
CPT/HCPCS: 94060; 94726; 94729